=== PATIENT | female | born 1965 | race Caucasian/White ===

== ENCOUNTER 2019-12-18 09:03 | Outpatient (CLI) | payer OTHER, SELFPAY ==
--- NOTE | ~2019-12-18 | MM_ITS ---
EXAMINATION: MM screening liv BI w pina HISTORY: Screening mammogram TECHNIQUE: Craniocaudal and mediolateral oblique 3-D tomosynthesis images were obtained and synthetic 2-D images were generated. CAD analysis was submitted and interpreted. COMPARISON: 12/03/2018, 12/02/2017, 12/20/2016, 12/10/2016 BREAST PARENCHYMAL COMPOSITION: There are scattered areas of fibroglandular density. FINDINGS: Scattered benign-appearing calcifications are present. There is no evidence of suspicious m ass, calcification, or architectural distortion to suggest malignancy in either breast. There has bee n no suspicious interval change. IMPRESSION: 1. No mammographic evidence of malignancy. 2. Recommend routine screening mammography in one year. BI-RADS Category 2: Benign finding(s). Reviewed, dictated and finalized at location A.
== END 2019-12-18 09:04 | disposition home or self-care (01) ==
PROVIDERS: PCP Internal Medicine; Visit Provider Nurse Practitioner Obstetrics & Gynecology
DX: Z12.31 Encounter for screening mammogram for malignant neoplasm of breast (principal)
CPT/HCPCS: 77063; 77067

== ENCOUNTER → 2019-12-30 09:22 | Outpatient (CLI) | payer OTHER, SELFPAY ==
--- NOTE | ~2019-12-30 | DEXA_ITS ---
Bone Density Report Name: Bhumi Thompson Age: 54 Sex: Female Ethnicity: White Date of : 1965 Indication: postmenopausal; screening for osteoporosis; hysterectomy; Referring Provider: Nathan, Nafisa Remy Study: Bone densitometry was performed. Exam Date: December 30, 2019 Accession number: [id number] Bone Density: Region BMD T-score Z-score Classification AP Spine (L1-L4) 0.947 -0.9 0.3 Normal Femoral Neck (Left) 0.800 -0.4 0.7 Normal Total Hip (Left) 0.952 0.1 0.8 Normal Femoral Neck (Right) 0.813 -0.3 0.8 Normal Total Hip (Right) 0.949 0.1 0.8 Normal Total Hip Mean 0.951 0.1 0.8 Normal World Health Organization criteria for BMD impression classify patients as: Normal (T-score at or above -1.0), Osteopenia (T-score between -1.0 and -2.5), or Osteoporosis (T-score at or below -2.5). 10-year Fracture Risk: FRAX not reported because: All T-scores for Spine Total, Hip Total, Femoral Neck at or above -1.0 Clinical Information Provided by Patient: Has the following medical conditions: Hysterectomy Patient maximum height was 63.6 Menopause Age: 51 No regular weight bearing exercise Drinks caffeinated beverages Onset of menses at age 13 Number of children 2 Impression: The patient has normal bone mass. Discussion: BONE DENSITY IS ABOVE THE MINIMUM DESIRABLE LEVEL AT ALL SKELETAL SITES TESTED. This patient?s bone mineral density is above the minimum desirable level (T-score -1.0 or better) at all sites measured. The patient should follow a healthful lifestyle (good nutrition with adequate calcium and vitamin D, and appropriate weight-bearing exercise). Follow-Up: Consider repeating this study in 5 years or sooner if there is some new clinical indication. Reported by: JACQUELINE on 12/30/2019 10:08:00 AM. Reviewed, dictated and finalized at location AGerry MIRELES
== END ==
PROVIDERS: Visit Provider Nurse Practitioner Obstetrics & Gynecology
DX: Z13.820 Encounter for screening for osteoporosis (principal)
CPT/HCPCS: 77080

== ENCOUNTER 2020-12-02 08:11 | Outpatient (CLI) | payer OTHER, SELFPAY ==
--- NOTE | ~2020-12-02 | MM_ITS ---
EXAMINATION: MM screening liv BI w pina HISTORY: Screening TECHNIQUE: Craniocaudal and mediolateral oblique 3-D tomosynthesis images were obtained and synthetic 2-D images were generated. CAD analysis was submitted and interpreted. COMPARISON: Comparison to multiple prior studies sequentially, with oldest reviewed study dated 12/2015. BREAST PARENCHYMAL COMPOSITION: There are scattered areas of fibroglandular density. FINDINGS: The left breast is stable without evidence for malignancy. There is developing asymmetry in the lower inner quadrant of the right breast. IMPRESSION: 1. Developing right breast asymmetry. 2. Additional mammographic views and possible breast ultrasound are recommended. BI-RADS Category 0: Incomplete: Needs additional imaging evaluation. Reviewed, dictated and finalized at location A. IMPRESSION: 1. Developing right breast asymmetry. 2. Additional mammographic views and possible breast ultrasound are recommended . BI-RADS Category 0: Incomplete: Needs additional imaging evaluation.
== END 2020-12-02 08:12 | disposition home or self-care (01) ==
LOC: ANHIMG 08:14
PROVIDERS: PCP Internal Medicine; Visit Provider Nurse Practitioner Obstetrics & Gynecology
DX: Z12.31 Encounter for screening mammogram for malignant neoplasm of breast (principal)
CPT/HCPCS: 77063; 77067

== ENCOUNTER 2020-12-28 12:51 | Outpatient (CLI) | payer OTHER, SELFPAY ==
--- NOTE | ~2020-12-28 | MMUS_ITS ---
EXAMINATION: MM diagnostic mammo unilat RT, US breast RT limited HISTORY: Follow-up right breast asymmetry TECHNIQUE: Additional 3-D tomosynthesis images of the right breast were performed and synthetic 2-D i mages were generated. CAD analysis was submitted and interpreted. High resolution Limited right breas t ultrasound was performed. COMPARISON: 12/02/2020 BREAST PARENCHYMAL COMPOSITION: Breast composed of scattered areas of fibroglandular density. FINDINGS: MAMMOGRAPHIC FINDINGS: There is persistent focal asymmetry with ill-defined margins in the lower inner quadrant of the right breast, middle third. No suspicious calcifications or architectural distortion. ULTRASOUND: Right breast ultrasound: At 5:00, 5 cm from the nipple, there is an irregular shaped hypoechoic mass with posterior shadowing measuring 1.4 x 1.0 x 0.8 cm. No internal vascularity. At 9:00, 3 cm from the nipple, there is an irregular shaped hypoechoic mass measuring 9 x 7 x 4 mm wi th no significant posterior features or internal vascularity. IMPRESSION: 1. Abnormal irregular shaped hypoechoic masses of the right breast at 5:00 and 9:00. 2. Ultrasound-guided right breast biopsies recommended. BI-RADS category 4, suspicious findings. Reviewed, dictated and finalized at location A. IMPRESSION: 1. Abnormal irregular shaped hypoechoic masses of the right breast at 5:00 and 9:00. 2. Ultrasound-guided right breast biopsies recommended. BI-RADS category 4, suspicious findings.
== END 2020-12-28 12:52 | disposition home or self-care (01) ==
LOC: ANHIMG 12:52
PROVIDERS: PCP Internal Medicine; Visit Provider Nurse Practitioner Obstetrics & Gynecology
DX: N63.14 Unspecified lump in the right breast, lower inner quadrant (principal); N63.15 Unspecified lump in the right breast, overlapping quadrants
CPT/HCPCS: 76642; 77065

== ENCOUNTER 2023-02-04 06:59 | Outpatient (CLI) | payer OTHER, SELFPAY ==
--- NOTE | ~2023-02-04 | MM_ITS ---
EXAMINATION: MM screening liv BI w pina HISTORY: Screening mammogram TECHNIQUE: Craniocaudal and mediolateral oblique 3-D tomosynthesis images were obtained and synthetic 2-D images were generated. CAD analysis was submitted and interpreted. COMPARISON: 12/28/2020, 12/02/2020, 12/18/2019 BREAST PARENCHYMAL COMPOSITION: There are scattered areas of fibroglandular density. FINDINGS: Scattered benign-appearing calcifications are present. No suspicious mass, calcification, o r architectural distortion are identified in either breast to suggest malignancy. There has been no s uspicious interval change. IMPRESSION: 1. No mammographic evidence of malignancy. 2. Recommend routine screening mammography in one year. BI-RADS Category 2: Benign finding(s). Reviewed, dictated and finalized at location A.
== END 2023-02-04 07:00 | disposition home or self-care (01) ==
LOC: CHSIMG 07:01
PROVIDERS: PCP Internal Medicine; Visit Provider Internal Medicine
DX: Z12.31 Encounter for screening mammogram for malignant neoplasm of breast (principal)
CPT/HCPCS: 77063; 77067

== ENCOUNTER 2024-02-10 07:54 | Outpatient (CLI) | payer BC, SELFPAY ==
--- NOTE | ~2024-02-10 | MM_ITS ---
EXAMINATION: MM screening liv BI w pina HISTORY: Screening TECHNIQUE: Craniocaudal and mediolateral oblique 3-D tomosynthesis images were obtained and synthetic 2-D images were generated. CAD analysis was submitted and interpreted. COMPARISON: Comparison to multiple prior studies sequentially, with oldest reviewed study dated 09/2017. BREAST PARENCHYMAL COMPOSITION: Not dense: There are scattered areas of fibroglandular density. FINDINGS: There is no evidence of suspicious mass, calcification, or architectural distortion to sugg est malignancy in either breast. There has been no suspicious interval change. IMPRESSION: 1. No mammographic evidence of malignancy. 2. Recommend routine screening mammography in one year. BI-RADS Category 1: Negative Reviewed, dictated and finalized at location B.
== END 2024-02-10 07:55 | disposition home or self-care (01) ==
LOC: CHSIMG 07:58
PROVIDERS: PCP Internal Medicine; Visit Provider Internal Medicine
DX: Z12.31 Encounter for screening mammogram for malignant neoplasm of breast (principal)
CPT/HCPCS: 77063; 77067

== ENCOUNTER 2024-12-01 14:46 | Outpatient (CLI) | payer BC, SELFPAY ==
--- NOTE | ~2024-12-01 | CT_ITS ---
EXAMINATION: CT sinus wo con DATE: 12/01/2024 15:09 INDICATION: Chronic sinusitis. TECHNIQUE: Computed tomography (CT) of the paranasal sinuses was performed without intravenous contra st. The dose-length product was 296.82 mGy-cm. Automated exposure control and iterative reconstructio n technique were employed. COMPARISON: None FINDINGS: There is no significant mucosal thickening or air-fluid level. No mucoperiosteal reaction. Mastoids are pneumatized. Leftward nasal septal deviation. Ostiomeatal units are patent. Mastoids are pneumatized. IMPRESSION: 1. No significant sinus disease. Reviewed, dictated and finalized at location A.
--- OUTSIDE RECORDS SUMMARY | 2024-12-01 14:49 | XMS_ITS | Clinical Summary ---
Author Organization [facility] Address [address] [place] [address] Care Team Providers Care Cargo Worker Name Role Phone Favian Tyler DO Primary Care Provider [phone] Source Comments [facility] [employer],non-owned Affiliates and Associated Physician Practices is amultiple site organization consisting of ambulatory clinics and hospital sitesin [place], [place], [place] and [place]. This disclosure is being madepursuant to the Care Everywhere program and may not contain all information available regarding this patient. Last updated 18.[facility] [employer] Social History Tobacco Use Types Packs/Day Years Used Date Smoking Tobacco: Never Assessed Comments Unknown Sex and Gender Information Value Date Recorded Sex Assigned at Not on file Legal Sex Female 1:14 PM CDT Gender Identity Not on file Sexual Orientation Not on file Plan of Treatment Health Maintenance Due Date Last Done Comments COLOGUARD (AGES 45-75) - COL ON CA SCREENING 1965 COLON MONITORING 1965 COLONOSCOPY - COLON CA SCREENING 1963 CT COLONOGRAPHY - COLON CA SCREENING 1965 Colorectal Cancer Screening 1965 FIT - COLON CA SCREENING 1965 FLEX SIG - COLON CA SCREENING 1965 LIPID TESTING 1965 MAMMOGRAM 1965 HIV SCREENING 1978 HEPATITIS C SCREENING 06/03/1981 DTAP/TDAP/TD VACCINES (1 - Tdap) 1982 PNEUMOCOCCAL VACCINE 50+ (1 of 1 - PCV) 2013 ZOSTER VACCINE (1 of 2) 2013 COVID-19 VACCINE (1 - 2023-2 5 season) 2024 DEPRESSION SCREENING 07/01/2024 INFLUENZA VACCINE (Season Ended) 2025 Respiratory Syncytial Virus (RSV) Vaccine Pt: or over 60 yrs (1 - 1-dose 75+ series) 2038 HEPATITIS B VACCINE Aged Out No longe r eligible based on patient's age to complete this topic HIB VACCINE Aged Out No longer eligi ble based on patient's age to complete this topic HPV VACCINE Aged Out No longer eligi ble based on patient's age to complete this topic MENINGOCOCCAL (Group B) VACC INE SHARED DECISION-MAKING Aged Out No longer eligibl e based on patient's age to complete this topic MENINGOCOCCAL GROUPS A/C/Y/W VACCINE Aged Out No longer eligible b ased on patient's age to complete this topic Care Teams Cargo Worker Relationship Specialty Start Date End Date Favian Tyler DO [address] [place] [address] PCP - General 01/28/19
--- OUTSIDE RECORDS SUMMARY | 2024-12-01 14:49 | XMS_ITS | Encounter Summary ---
Author Organization [facility] Address [address] [place] [address] Care Team Providers Care Outside Sales Account Representative Name Role Phone Favian Tyler DO Primary Care Provider [phone] Encounter Details Date Type Department Care Team (Late st Contact Info) Description 09/10/2019 Lab Requisition [facility] [address] [place] [id number] Bull Zamudio MD [address] [place] [address] Social History Tobacco Use Types Packs/Day Years Used Date Smoking Tobacco: Never Assessed Comments Unknown Sex and Gender Information Value Date Recorded Sex Assigned at Not on file Legal Sex Female 1:14 PM CDT Gender Identity Not on file Sexual Orientation Not on file documented as of this encounter Plan of Treatment Not on file documented as of this encounter Procedures Procedure Name Priority Date/Time Associated Diagnosis Comments DERMATOPATHOLOGY Routine 09/09/2019 12:0 0 AM CDT documented in this encounter Results * DERMATOPATHOLOGY (09/09/2019 12:00 AM CDT) Case Report Dermatopathology Report Case: [id number] Authorizing Provider: Bull Zamudio MD Collected: 09/09/2019 12:00 AM Ordering Location: [facility] Received: 09/10/2019 12:50 PM Pathologist: Marta Nguyen MD Specimen: Skin, right lateral lower leg 0 3:40 PM CDT DERMATOPATHOLOGY LABORATORY Final Diagnosis Specimen A. SKIN, right lateral lower leg: BASAL CELL CARCINOMA, SUPERFICIAL MULTIFOCAL (C44.712) 0 3:40 PM CDT DERMATOPATHOLOGY LABORATORY at 1540 CDT Clinical History R/O Drake's, BCC, dys nevus. 0 3:40 PM CDT DERMATOPATHOLOGY LABORATORY Gross Description Specimen A: Received is one formalin filled container labeled with the patient's name and designated right lateral lower leg. The specimen consists of a shave biopsy measuring [id number]. Jar 0. 0 3:40 PM CDT DERMATOPATHOLOGY LABORATORY Microscopic Description Specimen A. SKIN, right lateral lower leg: Attached to the undersurface of the epidermis, there are small aggregates of basaloid cells with a high nuclear to cytoplasmic ratio and peripheral palisading. 0 3:40 PM CDT DERMATOPATHOLOGY LABORATORY Disclaimer An external and internal positive and negative controls are appropriate for the histochemical, immunohistochemical and immunofluorescence stain(s) in this case (if any), except where stated explicitly. The performance characteristics of the stain(s) cited in this report were developed and its performance characteristic determined by the Dermatopathology Laboratory at [facility], directed by Dr. Alexandra Lieberman. These tests need not be, and therefore are not, approved by the [place] Food and Drug Administration. The tests are used for clinical purposes. Billing Codes Specimen Charges Stain Charges 52092 1 0 3:40 PM CDT DERMATOPATHOLOGY LABORATORY Embedded Images 0 3:40 PM CDT DERMATOPATHOLOGY LABORATORY Pathology/Cytolog y TISSUE SPECIMEN FROM SKIN / Unknown 09/09/2019 09/10/2019 12:50 PM CDT us Bull Zamudio MD LAB - PATHOLOGY/CYTOLOGY ORD ERABLES Final Result DERMATOPATHOLOGY LABORATORY [facility] - Department of Dermatology [facility] [facility], 5th [place] [address], [facility] [phone] documented in this encounter Visit Diagnoses Not on filedocumented in this encounter Care Teams Outside Sales Account Representative Relationship Specialty Start Date End Date Favian Tyler DO [address] [facility] [address] [place] [address] PCP - General 7/31/19 documented as of this encounter
--- OUTSIDE RECORDS SUMMARY | 2024-12-01 14:49 | XMS_ITS | Encounter Summary ---
Author Organization [facility] Address [address] [facility] [address] [place] [address] Care Team Providers Care Learning Operations Specialist Name Role Phone Favian Tyler DO Primary Care Provider [phone] Encounter Details Date Type Department Care Team (Late st Contact Info) Description 05/19/2020 Lab Requisition [facility] [address] [place] [id number] Bull Zamudio MD [address] [place] [address] Social History Tobacco Use Types [...] Priority Date/Time Associated Diagnosis Comments DERMATOPATHOLOGY Routine 05/18/2020 12:0 0 AM STILL OPERATOR BATCH OR CONTINUOUS documented in this encounter Results * DERMATOPATHOLOGY (05/18/2020 12:00 AM STILL OPERATOR BATCH OR CONTINUOUS) Case Report Dermatopathology Report Case: [id number] Authorizing Provider: Bull Zamudio MD Collected: 05/18/2020 12:00 AM Ordering Location: [facility] Received: 05/19/2020 11:29 AM Pathologist: Marta Nguyen MD Specimen: Skin, left upper breast 0 6:24 PM STILL OPERATOR BATCH OR CONTINUOUS DERMATOPATHOLOGY LABORATORY Final Diagnosis Specimen A. SKIN, left upper breast: LICHEN PLANUS-LIKE KERATOSIS (BENIGN LICHENOID KERATOSIS) (L82.1) 0 6:24 PM STILL OPERATOR BATCH OR CONTINUOUS DERMATOPATHOLOGY LABORATORY at 1824 STILL OPERATOR BATCH OR CONTINUOUS Clinical History R/O ISK, BCC, Drkae's, SCC. 0 6:24 PM STILL OPERATOR BATCH OR CONTINUOUS DERMATOPATHOLOGY LABORATORY Gross Description Specimen A: Received is one formalin filled container labeled with the patient's name and designated left upper breast. The specimen consists of a shave biopsy measuring [id number]. Jar 0. 0 6:24 PM STILL OPERATOR BATCH OR CONTINUOUS DERMATOPATHOLOGY LABORATORY Microscopic Description Specimen A. SKIN, left upper breast: The epidermis is mildly acanthotic. There is a lichenoid infiltrate with vacuolar changes of basilar keratinocytes and scattered necrotic keratinocytes. 0 6:24 PM STILL OPERATOR BATCH OR CONTINUOUS DERMATOPATHOLOGY LABORATORY Disclaimer An external and internal positive and negative controls are appropriate for the histochemical, immunohistochemical and immunofluorescence stain(s) in this case (if any), except where stated explicitly. The performance characteristics of the stain(s) cited in this report were developed and its performance characteristic determined by the Dermatopathology Laboratory at [facility], directed by Dr. Alexandra Lieberman. These tests need not be, and therefore are not, approved by the [place] Food and Drug Administration. The tests are used for clinical purposes. Billing Codes Specimen Charges Stain Charges 79856 1 0 6:24 PM STILL OPERATOR BATCH OR CONTINUOUS DERMATOPATHOLOGY LABORATORY Embedded Images 0 6:24 PM STILL OPERATOR BATCH OR CONTINUOUS DERMATOPATHOLOGY LABORATORY Pathology/Cytolog y TISSUE SPECIMEN FROM SKIN / Unknown 05/18/2020 05/19/2020 11:29 AM STILL OPERATOR BATCH OR CONTINUOUS Bull Zamudio MD LAB - PATHOLOGY/CYTOLOGY ORD ERABLES Final Result DERMATOPATHOLOGY LABORATORY [facility] - Department of Dermatology [facility] [address] [place] [address], [address] [place] [address], [facility] [phone] documented in this encounter Visit Diagnoses Not on filedocumented in this encounter Care Teams Learning Operations Specialist Relationship Specialty Start Date End Date Favian Tyler DO [address] [place] [address] PCP - General 01/28/19 documented as of this encounter
--- OUTSIDE RECORDS SUMMARY | 2024-12-01 14:49 | XMS_ITS | Clinical Summary ---
Author Organization [facility] Address [facility] [place] [address] Care Team Providers Care Knockdown Worker Name Role Phone Favian Tyler MD Primary Care Provider [phone] Allergies No known active allergies Medications FLUoxetine (PROzac) 20 mg tabletIndicatio ns:Anxiety with Depression Take 20 mg by mouth every morning 1 Active omeprazole (PriLOSEC) 20 mg capsuleIndicati ons:Gerd Take 20 mg by mouth every morning Active ascorbic acid (vitamin C) 1,000 mg tabletIndicatio ns:Vitamin C Deficiency Take 1,000 mg by mouth every morning Active cholecalciferol (VITAMIN D-3) 2000 unit capsule Take 2,000 Units by mouth every morning Active zinc 50 mg tabletIndicatio ns:health Take 50 mg by mouth every morning Active turmeric root extract 500 mg capsuleIndicati ons:health Take 500 mg by mouth every morning Active ELDERBERRY FRUIT AND FLOWER ORALIndications :health Take 1 Caplet by mouth every morning Active ibuprofen (ibuprofen) 200 mg tab/capIndicati ons:Pain Take 400 mg by mouth every 6 (six) hours as needed for pain Active fluticasone propionate (FLONASE) 50 mcg/actuation nasal sprayIndication s:Allergic Rhinitis Administer 1 spray into each nostril every morning Active UNABLE TO FIND Administer 1 each into both eyes every morning OTC eye drop for Macular degeneration prevention Active docusate sodium (COLACE) 100 mg capsuleIndicati ons:constipatio n Take 1 capsule (100 mg total) by mouth 2 (two) times a day with a glass of water 10 capsule 1 Active oxyCODONE-aceta minophen (PERCOCET) 5-325 mg per tabletIndicatio ns:Pain Take 1 tablet by mouth every 4 (four) hours as needed for pain 10 tablet 1 Active Active Problems Problem Noted Date Diagnosed Date Abnormal findings on diagnostic imaging of yunior t 01/23/2021 Surgical History Surgery Date Site/Laterality Comments SINUS SURGERY 07/01/1997 - 06/30/1998 ELBOW SURGERY 07/01/2003 - 06/30/2004 Right FOOT SURGERY 07/01/2019 - 06/30/2020 LEG / ANKLE SOFT TISSUE BIOPSY 07/01/2019 - 06/30/2020 R ight HYSTERECTOMY 07/01/2015 - 06/30/2016 BREAST BIOPSY 01/24/2021 Right Medical History Medical History Date Comments Motion sickness GERD (gastroesophageal reflux disease) Skin cancer Breast cancer (HCC) Right Family History Medical History Relation Name Comments Coronary artery disease Father Skin cancer Father Lung cancer Maternal Grandfather Relation Name Status Comments Father Maternal Grandfather Social History Tobacco Use Types Packs/Day Years Used Date Smoking Tobacco: Never Smokeless Tobacco: Never AUDIT-C Answer Date Recorded Q1: How often do you have a drink containing alc ohol? 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 Gender Identity Not on file Sexual Orientation Not on file Obstetrics History Last Filed Vital Signs Vital Sign Reading Time Taken Comments Blood Pressure 133/82 03/13/2021 9:20 AM CDT Pulse 55 03/13/2021 9:20 AM CDT Temperature 36.2 C (97.2 F) 03/13/2021 9:00 AM CDT Respiratory Rate 13 03/13/2021 9:20 AM CDT Oxygen Saturation 95% 03/13/2021 9:20 AM CDT Inhaled Oxygen Concentration - - Weight 69.4 kg (153 lb) 12/11/2021 9:00 AM CDT Height 160 cm (5' 3) 12/11/2021 9:00 AM CDT Body Mass Index 27.1 12/11/2021 9:00 AM CDT Plan of Treatment Health Maintenance Due Date Last Done Comments Colon Cancer Screening-Colonoscopy 1965 Depression Screening 1965 Hepatitis C Screening 1965 DTaP/Tdap/Td Vaccine (1 - Tdap) 1974 Hepatitis B Screening 1981 Regular Well Visit/Exam 18-64 1981 Zoster Vaccine (1 of 2) 2013 Breast Cancer Screening-Mammogram 12/11/2022 022 Influenza Vaccine (Season Ended) 2025 Pneumococcal vaccine <65 Aged Out No longer eligible based on patient's age to complete this topic Medical Devices Implanted Type Area Him Tech Device Identifier Shelf Expiration Date Model / Serial / Lot bTendo [id number] Magseed 18ga 7cm Marker Breast Biopsy - [id number] Implanted:Qty: 1 on 03/07/2021 at [facility] Right: Breast bTendo [id number] / / Procedures Procedure Name Priority Date/Time Associated Diagnosis Comments SCREENING MAMMOGRAM BILATERAL W PATRICK Schedule Routine, Read Routine (OP Routine) 12/11/2021 9:53 AM CDT Abnormal findings on diagnostic imaging of breast from Last 3 Months or Most Recently Relevant to Health Maintenance Results * Screening Mammogram Bilateral W Patrick (12/11/2021 9:53 AM CDT) Anatomical Region Laterality Modality Breast Bilateral Mammography Narrative 12/13/2021 1:55 PM CDT Mammogram Technique: Bilateral Digital Breast Tomosynthesis, Bilateral C-view 2D Screening mammogram. Views obtained: bilateral craniocaudal and bilateral mediolateral oblique. Computer Aided Detection was performed. Mammogram Findings: No prior imaging studies are available for comparison. There are scattered areas of fibroglandular density. There is no suspicious abnormality in either breast. Impression: There is no mammographic evidence of malignancy. Annual screening mammography is recommended. OVERALL FINAL ASSESSMENT: BI-RADS CATEGORY 1: Negative. Procedure Note Modesta Gandhi MD - 12/13/2021 Mammogram Technique: Bilateral Digital Breast Tomosynthesis, Bilateral C-view 2D Screening mammogram. Views obtained: bilateral craniocaudal and bilateral mediolateral oblique. Computer Aided Detection was performed. Mammogram Findings: No prior imaging studies are available for comparison. There are scattered areas of fibroglandular density. There is no suspicious abnormality in either breast. Impression: There is no mammographic evidence of malignancy. Annual screening mammography is recommended. OVERALL FINAL ASSESSMENT: BI-RADS CATEGORY 1: Negative. Provider Transcribed Order IMG MAMMO PROCEDURES Final Result from Last 3 Months or Most Recently Relevant to Health Maintenance Insurance [employer] Care Teams Knockdown Worker Relationship Specialty Start Date End Date Favian Tyler MD [address] [facility] [address] [place] [id number] PCP - General Internal Medicine 12/30/20
--- OUTSIDE RECORDS SUMMARY | 2024-12-01 14:49 | XMS_ITS | Clinical Summary ---
Author Organization [facility] Address [address], [address] [address] Phone Care Team Providers Care Superintendent Sales Name Role Phone Favian Tyler Aurelio DELACRUZ Primary Care Provider [phone] [phone] Allergies No known active allergies Medications lansoprazole (PREVACID) 15 MG CAPSULE DELAYED RELEASE Take 15 mg by mouth daily. Active Multiple Vitamin (MULTI-VITAMIN PO) Take 1 Tab by mouth daily. Active Multiple Vitamins-Mineral s (RA MATURE WOM[employer] DIETARY SUPP) Tablet Take by mouth. Active FLUoxetine HCl 20 MG Tablet Take 20 mg by mouth daily. Active Family History Medical History Relation Name Comments Cancer Father skin Coronary Artery Disease Father Hypertension Mother Stroke Mother Relation Name Status Comments Father Alive Mother Alive Social History Tobacco Use Types Packs/Day Years Used Date Smoking Tobacco: Never Smokeless Tobacco: Never Alcohol Use Standard Drinks/Week Comments Never 0 (1 standard drink = 0.6 oz pur e alcohol) AUDIT-C Answer Date Recorded Frequency of Alcohol Consumption Never 12/25/2018 Average Number of Drinks Not on file 019 Frequency of Binge Drinking Not on file 11/30 Sexually Active Control Partners Comments Never Comments Unknown Sex and Gender Information Value Date Recorded Sex Assigned at Not on file Legal Sex Female 9:16 PM CDT Gender Identity Not on file Sexual Orientation Not on file Last Filed Vital Signs Vital Sign Reading Time Taken Comments Blood Pressure 116/71 01/13/2019 8:04 AM CDT Pulse 62 01/13/2019 6:25 AM CDT Temperature 36 C (96.8 F) 01/13/2019 8:04 AM CDT Respiratory Rate 17 01/13/2019 8:04 AM CDT Oxygen Saturation 99% 01/13/2019 8:04 AM CDT Inhaled Oxygen Concentration - - Weight 68 kg (150 lb) 12/25/2018 11:00 AM CDT Height 160 cm (5' 3) 12/25/2018 11:00 AM CDT Body Mass Index 26.57 12/25/2018 11:00 AM CDT Plan of Treatment Health Maintenance Due Date Last Done Comments Hepatitis C Virus (HCV) Screening 1965 TdaP Immunization 1965 Cologuard 2013 Immunochemical Fecal Occult Blood 2013 Mammogram 2013 Pneumococcal Immunization (5 0+ years) (1 of 1 - PCV) 2013 Zoster Immunization (1 of 2) 2013 Colonoscopy 01/14/2024 01/13/2019 Colorectal Cancer Screening 01/14/2024 Influenza Immunization (#1) 2024 SARS-COV-2 Immunization (1 - 2023- season) 2024 Respiratory Syncytial Virus (RSV) Immunization (Adult) (1 - 1-dose 75+ series) 2038 01/13/2019 Hepatitis B Immunization Aged Out No longer eligible based on patient's age to complete this topic Meningococcal Immunization (ACWY) Aged Out No longer eligible based on patient's age to complete this topic Pneumococcal Immunization Combined Aged Out No longer eligible based on patient's age to complete this topic Rotavirus Immunization Aged Out No lo nger eligible based on patient's age to complete this topic Care Teams Superintendent Sales Relationship Specialty Start Date End Date Favian Tyler DO [address] [place] [address] PCP - General Internal Medicine 12/09/18
--- OUTSIDE RECORDS SUMMARY | 2024-12-01 14:49 | XMS_ITS | Continuity of Care Document ---
Author Organization [facility], [facility] Address [address] [place] [address] Care Team Providers Care Computer Equipment Installer Name Role Phone LACY BETANCUR Orthopedist TREV HURD Primary Care Provider [phone] TREV HURD Referring Provider ADRIANNA ROWAN Physician Crew Lead Assessment No assessment recorded. Plan of Treatment Reminders Order Date Submit Date Provider Last Modified By Organization Details Last Modified Time Details Appointments None recorde d. Lab None recorde d. Referral None recorde d. Procedures None recorde d. Surgeries None recorde d. Imaging XR, shoulde r, 2 or more view 2024 025 [facility], [address] [place], [address], 5 12:03:25 Medication Orders lidocai ne HCl 10 mg/mL (1 %) injecti on solutio n 2024 025 [facility], [place], [address] [place], [address], 5 16:18:57 triamci nolone acetoni de 40 mg/mL suspens ion for injecti on 2024 025 [facility], [address] [place], [address], 5 16:18:57 lidocai ne HCl 10 mg/mL (1 %) injecti on solutio n 2024 025 [facility], [address] [place], [address], 5 16:18:57 triamci nolone acetoni de 40 mg/mL suspens ion for injecti on 2024 025 [facility], [address] [place], [address], 5 16:18:57 Patient TargetsNo targets recorded. Patient Instructions Encounter Date Encounter Id Patient Instructions Last Modified By Organization Details Last Modified Time 11/30/2024 [id number] Impression: 59-year-old female with bilateral shoulder pain likely rotator cuff tendinitis and impingement syndrome. No evidence of rotator cuff tear on exam. Plan: X-ray and physical exam findings were discussed. Treatment options were discussed. Subacromial injection was given into both shoulders. She continue home exercise program for her shoulders. She has been to follow-up if she is not improving. This document was created using the Connectem voice recognition system. Although proofread, there may still be inadvertent voice recognition errors. [employer] Not available 11/30/2024 21:09:05 Reason for Referral None Reported. Problems Name Problem SNOMED Code Status Onset Date Resolution Date Notes Provider Name and Address Organization Details Recorded Time Pain of right shoulder joint 1749957510689 9100 Active 2019 Jaci Vincent null, [place] - [facility] 5 11:25:58 Pain of shoulder region 78420742 Active 2019 PEDRO CHRISTIANSON null, [place] - [facility] 0 10:58:22 Rupture of rotator cuff of right shoulder 7273859203704 9103 Active 2019 Gilson Betancur null, [place] - [facility] 0 11:07:12 Impingement syndrome of right shoulder region 3781524016600 02 Active 2020 Zachary Guerrero MD [address] [place], [address], [place] - [facility] 5 21:08:25 Trigger finger of right hand 2865166708200 9101 Active 2021 Jared London null, [place] - [facility] 2 11:29:43 Chondromala mathew of right patella 8362491406620 9108 Active 2022 Maria Ines Elizabeth III, MD [address] [place], [address], [place] [facility] 3 11:12:06 Paresthesia of upper limb 11777119 Active 2022 YURI LAM DO [address] [place], [address], [place] [facility] 3 08:19:58 Pain of right hip joint 9555615939976 02 Active 2023 Jaci Carlton null, [place] - [facility] 4 13:18:33 Low back pain 554486739 Active 2023 Jaci Carlton null, [place] - [facility] 4 13:44:01 Neck pain 28739215 Active 2024 Jacob Macias null, [place] - [facility] 5 12:06:18 Pain of left shoulder joint 7447649624361 9109 Active 2024 Aissatou Putnam null, [place] - [facility] 5 16:15:23 Impingement syndrome of left shoulder region 6146663756078 04 Active 2024 Zachary Guerrero MD [address] [place], [address], [place] [facility] 5 21:08:31 Stiffness of left shoulder 1662600338071 06 Active 2024 Cristian Vitale, OT [address] [place], [address], [place] - [facility] 5 17:56:44 Weakness of left upper limb Active 2024 Cristian Vitale, OT [address] [facility] [place], [address], [place] - [facility] 5 17:56:51 Pain of left shoulder region Active 2024 Aissatou Putnam jd, [place] - [facility] 12:11:33 Problem Notes None recorded. Procedures Surgical History Date Name Laterality Status Provider Name and Address Organization Details Recorded Time 12/01/19 25 Injection Shoulder Sub-Acromial completed Zachary Guerrero MD [address] [facility] [place], [address], [place] - [facility] 11/30/2024 21:08:14 09/04/19 25 72682 OT eval low complexity completed Cristian Vitale OT [address] [place], [address], [place] - [facility] 09/06/2024 18:15:14 08/28/19 25 Injection Shoulder Sub-Acromial completed Zachary Guerrero MD [address] [facility] [place], [address], [place] - [facility] 08/28/2024 12:31:35 12/30/19 24 Date of Last Mammogram completed Not Available [facility] 05/19/2024 12:56:29 12/30/19 24 Most Recent Bone Density completed Not Available [facility] 05/19/2024 12:56:29 12/30/19 24 Mammogram completed Not Available [facility] 11/30/2024 10:40:02 03/08/20 23 36870: Asp/Inj - [id number]-[id number]-mom e completed PEDRO CHRISTIANSON [place] - [facility] 03/08/2023 11:21:41 08/09/19 22 TRIGGER FINGER INJECTION completed Jared Venturaargo [place] - [facility] 08/09/2021 11:31:41 08/09/19 22 Shoulder SA Injection completed Jared Venturaargo [place] - [facility] 08/09/2021 11:31:06 11/12/19 21 30030: Asp/Inj - khnkttzh-knd-xyx e completed Gaby Christy [place] - [facility] 11/11/2020 12:09:39 02/09/20 20 SHOULDER ARTHROSCOPY (SURG) completed Not Available [facility] 02/18/2020 17:28:05 02/03/20 20 B-Shoulder Brace completed Adrianna GRANDE [place] - [facility] 02/03/2020 10:16:38 07/01/19 20 Rotator Cuff Surgery completed Not Available [facility] 02/12/2023 10:04:38 07/01/19 19 Most Recent Mammogram completed PEDRO CHAVEZLEY [place] - [facility] 01/20/2020 10:40:39 07/01/19 17 Colonoscopy completed PEDRO CHAVEZLEY [place] - [facility] 01/20/2020 10:40:16 Other completed PEDRO CHRISTIANSON [facility] 01/20/2020 10:39:39 excision of basal cell carcinoma completed PEDRO CHAVEZLEY [place] - [facility] 01/20/2020 10:39:48 excision of squamous cell carcinoma completed PEDRO CHAVEZLEY [facility] 01/20/2020 10:39:56 Hysterectomy completed PEDRO CHRISTIANSON [facility] 01/20/2020 10:40:01 Imaging Results None recorded. Procedure Notes None recorded. Medical Equipment None Reported. Allergies Allergen ID Allergen Name Allergen Category Reaction Reaction Severity Criticality Documentation Date Start Date Code Code System Note Provider Name and Address Organization Details Recorded Time 582242 amoxicill in medicatio n Not available Not available Not available 01/20/2020 723 RxNorm PEDRO miles [facility] 0 10:36:32 749735 Product containin g penicilli n (product) medicatio n Not available Not available Not available 01/20/2020 79793 8001 SNOMED Not Available [facility] 5 10:40:01 507286 Substance with sulfonami de structure and antibacte rial mechanism of action (substanc e) medicatio n Not available Not available Not available 01/20/2020 66860 8003 SNOMED PEDRO CHAVEZZEFERINO miles [facility] 0 10:36:45 241047 Iodinated contrast media (substanc e) medicatio n Not available Not available Not available 01/20/2020 12512 2004 SNOMED PEDRO CHAVEZLEY jd [place] - [facility] 0 10:36:50 Medications Name Sig Start Date Stop Date Status Note LastModified by Organization Details LastModified Time lidocaine HCl 10 mg/mL (1 %) injection solution Take 4 mL by injection route. 2024 active Not Available Not Available Not Avai lable trazodone 50 mg tablet 02/09 completed Not Available Not Available Not Available bupivacaine HCl 0.5 % (5 mg/mL) injection solution Take 4 mL by injection route. 05/19 completed Not Available Not Available Not Available fluorouraci l 5 % topical cream 05/19 completed Not Available Not Available Not Available metronidazo le 500 mg tablet TAKE 1 TABLET BY MOUTH EVERY 8 HOURS FOR 10 DAYS 02/09 completed Not Available Not Available Not Available ciprofloxac in 500 mg tablet TAKE 1 TABLET BY MOUTH EVERY 12 HOURS FOR TEN DAYS 02/09 completed Not Available Not Available Not Available Carbocaine 1 % (10 mg/mL) injection solution Take 3 mL by injection route. 02/09 completed Not Available Not Available Not Available propranolol 10 mg tablet TAKE ONE TABLET BY MOUTH TWICE DAILY 05/19 completed Not Available Not Available Not Available prednisolon e acetate 1 % eye drops,suspe nsion Instill 1 DROP IN THE RIGHT EYE FOUR TIMES DAILY FOR 1 WEEK. 05/19 completed Not Available Not Available Not Available lorazepam 0.5 mg tablet TAKE 1/2 TO 1 TABLET BY MOUTH 60 minutes prios TO procedure . MAY repeast IF needed. 05/19 completed Not Available Not Available Not Available Valium 2 mg tablet Please take 1 tab 30 mins prior to MRI, MUST HAVE SEISMIC INTERPRETER 01/28 completed Not Available Not Available Not Available triamcinolo ne acetonide 40 mg/mL suspension for injection Take 1 mL by injection route. 2024 active Not Available Not Available Not Avai lable polymyxin B sulfate 10,000 unit-trimet hoprim 1 mg/mL eye drops INSTILL 1 DROP IN THE RIGHT EYE 4 TIMES A DAY 05/19 completed Not Available Not Available Not Available losartan 25 mg tablet TAKE 1 TABLET BY MOUTH EVERY DAY active Not Available Not Available No t Available diltiazem CD 120 mg capsule,ext ended release 24 hr TAKE ONE CAPSULE BY MOUTH EVERY DAY 05/19 completed Not Available Not Available Not Available gabapentin 100 mg capsule TAKE ONE CAPSULE BY MOUTH EVERY DAY FOR hip PAIN, MAY TAKE 2 CAPSULES IF needed. active Not Available Not Available No t Available metoprolol succinate ER 25 mg tablet,exte nded release 24 hr TAKE ONE TABLET BY MOUTH DAILY 05/19 completed Not Available Not Available Not Available estradiol 0.0375 mg/24 hr semiweekly transdermal patch Apply 1 PATCH transderm ally TWICE A WEEK. 05/19 completed Not Available Not Available Not Available hydromorpho ne 4 mg tablet Take 1 tablet every 4 hours by oral route. 02/28 completed Not Available Not Available Not Available doxycycline hyclate 100 mg tablet 05/19 completed Not Available Not Available Not Available progesteron e micronized 100 mg capsule TAKE ONE CAPSULE BY MOUTH DAILY AT BEDTIME. 05/19 completed Not Available Not Available Not Available estradiol 0.025 mg/24 hr semiweekly transdermal patch APPLY 1 PATCH topically TWICE A WEEK active Not Available Not Available No t Available nitrofurant oin monohydrate /macrocryst als 100 mg capsule 02/09 completed Not Available Not Available Not Available duloxetine 20 mg capsule,del ayed release TAKE 2 CAPSULES BY MOUTH AT BEDTIME active Not Available Not Available No t Available duloxetine 30 mg capsule,del ayed release TAKE ONE CAPSULE BY MOUTH EVERY DAY active Not Available Not Available No t Available lidocaine (PF) 10 mg/mL (1 %) injection solution Take 4 mL by injection route. 05/19 completed Not Available Not Available Not Available estradiol 0.25 mg/0.25 gram (0.1 %) transdermal gel packet Apply contents OF 1 PACKET topically DAILY DIRECTED. 09/03 completed Not Available Not Available Not Available duloxetine 40 mg capsule,del ayed release Take 1 capsule every day by oral route. 05/19 completed Not Available Not Available Not Available Sutab 1.479-0.188 -0.225 gram tablet 02/09 completed Not Available Not Available Not Available FreeStyle Nadiya 3 Plus Sensor device Use as directed 08/28 completed Not Available Not Available Not Available Vitals Date Recorded Body height Body mass index (BMI) Body weight Provider Name and Address Organization Details Last Updated DateTime 11/30/2024 165.1 cm 29.1 kg/m2 40929.66 g Aissatou Putnam [place] - [facility] 11/30/2024 10:50:40 Social History Question Answer Notes LastModified by Organizat ion Details LastModified Time Tobacco Smoking Status Former Smoker Not Available [facility] 02/12/2023 10:04:38 Do You Have An Advance Directive? Yes [email or web address]-13 Information n ot available 02/12/2023 Which Of Your Hands Is Dominant? Left [email or web address]-13 Information n ot available 02/12/2023 Have You Had A Flu Shot In The Past 12 Months? No [email or web address]-13 Information not available 02/12/2023 Have You Had A Pneumonia Vaccine In The Last 12 Months? No [email or web address]-13 Information not available 02/12/2023 Have You Received A Covid Vaccine? Yes [email or web address]-13 Information not available 02/12/2023 If So, When Was Your Last Covid Vaccine? 06/02/2021 [email or web address]-13 Information not available 02/12/2023 What Type Of COVID Vaccine? Moderna Booster [email or web address]-13 Information not available 02/12/2023 Have You Had Any Other Immunizations In The Past 14 Days? No API-13 Information no t available 02/12/2023 Do You Have A Medical Power Of Data Security Consultant? Yes [email or web address]-13 Information not available 02/12/2023 What Was The Date Of Your Most Recent Tobacco Screening? 11/20/2024 [email or web address]-13 Information not available 11/30/2024 Sex: Female Functional Status Question Answer Note LastModified by Organizat ion Details LastModified Time Do you or have you ever used any other forms of tobacco or nicotine? No API-13 Information not available 02/12/2023 What is your level of alcohol consumption? None API-13 Information not available 02/12/2023 Do you or have you ever used smokeless tobacco? 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 Never used electronic cigarettes [email or web address] Information not available 02/12/2023 Mental Status None recorded. Family History Relationship Description Onset Age of this Age Resolved Age Notes LastModified by Organization Details LastModified Time Father Family history of malignant neoplasm [email or web address] Not available 2024 10:40:01 Father Osteoarthrit is pt. added direct ly (02/09) [email or web address]-13 Not available 02/09/2023 14:03:05 Father History of carcinoma pt. added direct ly (02/09) [email or web address]-13 Not available 11/30/2024 10:40:01 Father Migraine pt. added direct ly (02/09) [email or web address]-13 Not available 02/09/2023 14:04:26 Father History of carcinoma 70 81 API-13 Not available 2024 10:40:01 Mother Family history of malignant neoplasm [email or web address] Not available 2024 10:40:01 Mother History of carcinoma pt. added direct ly (02/09) [email or web address]-13 Not available 11/30/2024 10:40:01 Mother History of carcinoma 67 69 API-13 Not available 2024 10:40:01 Brother Family history of malignant neoplasm [email or web address] Not available 2024 10:40:01 Brother History of carcinoma pt. added direct ly (02/09) [email or web address]-13 Not available 11/30/2024 10:40:01 Brother History of carcinoma 65 API-13 Not available 2024 10:40:01 Sister Diabetes mellitus [email or web address] Not available 2019 10:38:03 Paternal Aunt History of carcinoma pt. added direct ly (02/09) [email or web address]-13 Not available 02/09/2023 14:03:52 Maternal Grandmother History of carcinoma 81 pt. added direct ly (02/09) [email or web address]-13 Not available 11/30/2024 10:40:01 Paternal Grandmother Cerebrovascu lar accident pt. added direct ly (02/09) [email or web address]-13 Not available 02/09/2023 14:04:10 Paternal Grandfather Cerebrovascu lar accident pt. added direct ly (02/09) [email or web address]-13 Not available 02/09/2023 14:04:10 Daughter Asthma pt. added direct ly (05/19) [email or web address]-13 Not available 11/30/2024 10:40:01 Daughter Asthma 5 [email or web address]-13 Not available 0 11/30/2024 10:40:01 Medical History Condition Response HIV or AIDS N None N Leukemia N Irregular Heartbeat N MRSA N Mouth Sores N Previous Oral Steroid(s) N Sexually Transmitted Disease N Lung Disease N Blood Clots N Depression N COPD N Fever N Bipolar N Pacemaker N Patient reports no significant medical h istory N Sickle Cell Anemia N Colitis/Stomach Ulcers N Congestive Heart Failure N Anxiety Disorder N Dizziness Y Arthritis Y Thyroid Problems/Goiter N Cancer Y Chest Pain/Angina N Stroke N Stroke/TIA N Joint Stiffness Y High Cholesterol Y Previous Cortisone Injection(s) Y Loss of Consciousness Y Bleeding Problems N Rheumatoid Arthritis N Headaches Y Fibromyalgia N Swelling of Legs/Feet/Hands N Kidney Disease N Heart Problems N Osteoarthritis N Parkinson's Disease N Migraines Y Bleed or Bruise Easily Y ADD/ADHD N Lupus/SLE N Weight loss N Joint Pain Y Anemia N Eye Disease/Cataracts/Glaucoma N Poor Circulation N Weight Gain Y Previous Fracture(s) N Diabetes N Hepatitis/Liver Disease N Bleeding Disorder N Seizures/Epilepsy N Urinary Infection N Tuberculosis N Other: Y Dementia N Asthma N Excessive Thirst N Chronic Back Pain Y Drug dependency/Abuse N Psoriasis N Sleep apnea N Autism N Numbness/Tingling Y GERD/Reflux Y Pulmonary Embolis N GI Issues Specify: Y Hypertension Y Osteoporosis N Gynecological History Statement/Question Response Have you had a mammogram? Y Date of Last Mammogram 12/30/2023 Most Recent Bone Density 12/30/2023 Was the recent bone density a DEXA or DX A? Y Most Recent Mammogram 07/01/2018 Have you had a bone density test? N Obstetrics History GPAL:G 0 P 0 0 0 0 Immunizations Vaccine Type Date Status Note Provider Nam e and Address Organization Details Recorded Time SARS-COV-2 (COVID-19) vaccine, UNSPECIFIED 1 completed Gaby miles [facility] 11/11/2020 11:53:15 SARS-COV-2 (COVID-19) vaccine, UNSPECIFIED 1 completed Jared miles [facility] 08/09/2021 11:11:25 Influenza, split virus, quadrivalent, preservative 1 completed Jared miles [facility] 08/09/2021 11:11:34 Past Encounters Encounter ID Performer Location Encounter Start Date Encounter Closed Date Diagnosis/Indication Diagnosis SNOMED-CT Code Diagnosis ICD10 Code Diagnosis Note [id number] [facility] [address] [address] 11/30/2024 10:32:23 11/30/2024 11:42:25 Pain of right shoulder joint 5204869517 8443703 M25.511 Pain of le ft shoulder joint 7873321096 2705340 M25.512 Impingemen t syndrome of right shoulder region 8345934144 63492 M75.41 Impingemen t syndrome of left shoulder region 2211982051 74019 M75.42 Health Concerns Section Related Observation LastModified by Organization Detai ls LastModified Time None Recorded Concern Status LastModified by Organization Details LastModified Time None Recorded Payers Encounter Date Sequence Insurance Name Policy Number Policy Alejandro Covered Member ID Alejandro Member ID Guarantor Name 11/30/2024 1 [place] [id number] Bhumi Thompson [id number] Bhumi Thompson Notes Date Note Type Note Provider Name and Address Organization Details Recorded Time 11/30/2024 text/html [place] HPIReported bypatient.Who is your referring provider?Alma Hurd Please describe your Chief Complaint / Current Problem?Both shoulders, deltoid shoulder girdle down arms 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 (If none, write none or 0)) Have you had any previous work-related injuries? If yes, please explain:No What symptoms are you experiencing?Chron ic pain in both shoulders How long have you had this problem?1 years Have you had a similar pain in the past? If yes, when?Yes: How did your current problem happen? Please explain:N/A Work related?No Related to an injury? If yes, please provide date of injuryNo How severe is your pain currently on a scale from 0-10? (0= No pain 10= Worst Pain of my Life)5/ 10 What makes your pain worse? Please explain:Movement What makes your pain better? Please explain:Dual Any previous treatment for this problem?Physical Therapy;Chiropract or;Other Treatment: Steroid shot Have you had any of the following diagnostic studies for your problem? If so, when and where?X-Rays:Notes :Chief complaint: Bilateral shoulder pain History present illness: Patient is a 59-year-old female presents for bilateral shoulder pain. She had a subacromial injection in August with significant treatment in her left shoulder. She has had recurrent pain in both shoulders. She describes pain with range of motion. Denies any recent trauma. Reported by patient on 11/30/2024 Zachary Guerrero MD [facility] [place], [address], [facility] [facility] 11/30/2024 21:09:08 OBGyn Episode No OBEpisode recorded.
--- OUTSIDE RECORDS SUMMARY | 2024-12-01 14:49 | XMS_ITS | Referral Summary ---
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 us Provider Transcribed Order IMG MAMMO PROCEDURES Final Result from Last 3 Months or Most Recently Relevant to Health Maintenance Insurance [facility] [employer] [address] [place] [id number] [employer] [address] [facility] Care Teams Colorer Machine Relationship Specialty Start Date End Date Favian Tyler MD [address] [facility] [address] [place] [address] PCP - General Internal Medicine 12/30/20
== END 2024-12-01 14:47 | disposition home or self-care (01) ==
PROVIDERS: PCP Internal Medicine; Visit Provider Otolaryngology Otolaryngology/Facial Plastic Surgery
DX: J32.9 Chronic sinusitis, unspecified (principal)
CPT/HCPCS: 70486

== ENCOUNTER 2025-02-12 07:11 | Outpatient (CLI) | payer BC, OTHER, SELFPAY ==
--- NOTE | ~2025-02-12 | MM_ITS ---
EXAMINATION: MM screening liv BI w pina HISTORY: Screening TECHNIQUE: Craniocaudal and mediolateral oblique 3-D tomosynthesis images were obtained and synthetic 2-D images were generated. CAD analysis was submitted and interpreted. COMPARISON: Comparison to multiple prior studies sequentially, with oldest reviewed study dated 10/2018. BREAST PARENCHYMAL COMPOSITION: Not dense: There are scattered areas of fibroglandular density. FINDINGS: There is developing asymmetry in the lower central aspect of the right breast, anterior thi rd. The left breast is stable without evidence for malignancy. IMPRESSION: 1. Developing right breast asymmetry. 2. Additional mammographic views and possible breast ultrasound are recommended. BI-RADS Category 0: Incomplete: Needs additional imaging evaluation. Reviewed, dictated and finalized at location A. IMPRESSION: 1. Developing right breast asymmetry. 2. Additional mammographic views and possible breast ultrasound are recommended . BI-RADS Category 0: Incomplete: Needs additional imaging evaluation.
== END 2025-02-12 07:12 | disposition home or self-care (01) ==
LOC: CHSIMG 07:12
PROVIDERS: PCP Internal Medicine; Visit Provider Internal Medicine
DX: Z12.31 Encounter for screening mammogram for malignant neoplasm of breast (principal); R92.8 Other abnormal and inconclusive findings on diagnostic imaging of breast
CPT/HCPCS: 77063; 77067

== ENCOUNTER 2025-02-16 10:18 | Outpatient (CLI) | payer BC, OTHER, SELFPAY ==
--- NOTE | 2025-02-16 10:22 | ECG_ITS ---
Test Date: 2025-02-16 10:35:02 Measurements Intervals [place] Rate: 72 P: 35 GA: 163 QRS: -20 QRSD: 111 T: 52 QT: 380 QTc: 418 Interpretive Statements SINUS RHYTHM POSSIBLE ANTERIOR MYOCARDIAL INFARCTION BORDERLINE ST-T WAVE ABNORMALITY- HIGH LATERAL LEADS ABNORMAL ECG No previous ECG available for comparison Electronically Signed On 02-16-2025 10:41:36 CDT by Jony Burns D.O.
--- OUTSIDE RECORDS SUMMARY | 2025-02-16 10:47 | XMS_ITS | Clinical Summary ---
Author Organization [facility] Address [address] [place] [address] Care Team Providers Care Gynecology Teacher Name Role Phone Favian Tyler Aurelio DO Primary Care Provider [phone] Source Comments [facility] [employer],non-owned Affiliates and Associated Physician Practices is amultiple site organization consisting of ambulatory clinics and hospital sitesin [place], [place], [place] and [place]. This disclosure is being madepursuant to the Care Everywhere program and may not contain all information available regarding this patient. Last updated 18.[facility] [employer] Social History Tobacco Use Types Packs/Day Years [...] season) 2024 DEPRESSION SCREENING 07/01/2024 INFLUENZA VACCINE (#1) 2025 Respiratory Syncytial Virus (RSV) Vaccine Pt: [...] age to complete this topic Care Teams Gynecology Teacher Relationship Specialty Start Date End Date Favian Tyler DO [address] [facility] [address] [place] [address] PCP - General 01/28/19
--- OUTSIDE RECORDS SUMMARY | 2025-02-16 10:47 | XMS_ITS | Clinical Summary ---
Author Organization [facility] Address [address], [address] [address] Phone Care Team Providers Care Sap Specialist Name Role Phone Favian Tyler Aurelio DELACRUZ Primary Care Provider [phone] Allergies No known active allergies Medications lansoprazole [...] (HCV) Screening 1963 TdaP Immunization 1963 Cologuard 2008 Immunochemical Fecal Occult Blood 2008 Pneumococcal Immunization (5 0+ years) (1 of 1 - PCV) 2013 Zoster Immunization (1 of 2) 2013 Colonoscopy 01/14/2024 01/13/2019 Colorectal Cancer Screening 01/14/2024 SARS-COV-2 Immunization (1 - season) 2024 Influenza Immunization (#1) 2025 Respiratory Syncytial Virus (RSV) Immunization (Adult) (1 - 1-dose 75+ series) 2038 Hepatitis B Immunization Aged Out No longer eligible based on patient's age to complete this topic Human Papillomavirus (HPV) Immunization Aged Out No longer eligible b ased on patient's age to complete this topic Meningococcal Immunization (ACWY) Aged Out No longer eligible based on patient's age to complete this topic Rotavirus Immunization Aged Out No lo nger eligible based on patient's age to complete this topic Care Teams Sap Specialist Relationship Specialty Start Date End Date Favian Tyler DO [address] [place] [address] PCP - General Internal Medicine 12/09/18
--- OUTSIDE RECORDS SUMMARY | 2025-02-16 10:47 | XMS_ITS | Clinical Summary ---
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 Gender Identity Not on file Sexual Orientation [...] on file Medical Devices Implanted Type Area Glass Cut Off Supervisor Device Identifier Shelf Expiration Date Model / Serial / Lot Devicor [employer] [id number] Magseed 18ga 7cm Marker Breast Biopsy - [id number] Implanted:Qty: 1 on 03/07/2021 at [facility] Right: Breast [employer] [id number] / / Insurance [facility] CHOICE PLUS [facility] HMO/PPO Address: [address] [facility] H[facility]/PPO Address: [address] [address] [place] [address] [facility] CHOICE PLUS [facility] HMO/PPO Address: [address] [place] [address] [facility]ALTHCARE [facility] HMO/PPO Address: [address] [address] [facility] HMO/PPO Address: [address] [facility] HMO/PPO Address: [address] [address] Care Teams Lombardi Developer Relationship Specialty Start Date End Date Favian Tyler MD [address] [place] [address] PCP - General Internal Medicine 12/30/20
--- OUTSIDE RECORDS SUMMARY | 2025-02-16 10:48 | XMS_ITS | Encounter Summary ---
Author Organization [facility] Address [address] [address] Care Team Providers Care Die Storage Clerk Name Role Phone Favian Tyler DO Primary Care Provider [phone] Encounter Details Date Type Department Care Team (Late st Contact Info) Description 05/19/2020 Lab Requisition [facility] DermPath Lab [address] [place] [id number] Bull Zamudio MD [address] [place] [address] Social History Tobacco Use Types [...] Comments DERMATOPATHOLOGY Routine 05/18/2020 12:0 0 AM E COMMERCE PROJECT MANAGER documented in this encounter Results * DERMATOPATHOLOGY (05/18/2020 12:00 AM E COMMERCE PROJECT MANAGER) Case Report Dermatopathology Report Case: [id number] Authorizing Provider: Bull Zamudio MD Collected: 05/18/2020 12:00 AM Ordering Location: [facility] Received: 05/19/2020 11:29 AM Pathologist: Marta Nguyen MD Specimen: Skin, left upper breast 0 6:24 PM E COMMERCE PROJECT MANAGER DERMATOPATHOLOGY LABORATORY Final Diagnosis Specimen A. SKIN, left upper breast: LICHEN PLANUS-LIKE KERATOSIS (BENIGN LICHENOID KERATOSIS) (L82.1) 0 6:24 PM E COMMERCE PROJECT MANAGER DERMATOPATHOLOGY LABORATORY at [address] E COMMERCE PROJECT MANAGER Clinical History R/O ISK, BCC, Drake's, SCC. 0 6:24 PM E COMMERCE PROJECT MANAGER DERMATOPATHOLOGY LABORATORY Gross Description Specimen A: Received is one formalin filled container labeled with the patient's name and designated left upper breast. The specimen consists of a shave biopsy measuring 1c4f9he. Jar 0. 0 6:24 PM E COMMERCE PROJECT MANAGER DERMATOPATHOLOGY LABORATORY Microscopic Description Specimen A. SKIN, left upper breast: The epidermis is mildly acanthotic. There is a lichenoid infiltrate with vacuolar changes of basilar keratinocytes and scattered necrotic keratinocytes. 0 6:24 PM E COMMERCE PROJECT MANAGER DERMATOPATHOLOGY LABORATORY Disclaimer An external and internal positive and negative controls are appropriate for the histochemical, immunohistochemical and immunofluorescence stain(s) in this case (if any), except where stated explicitly. The performance characteristics of the stain(s) cited in this report were developed and its performance characteristic determined by the Dermatopathology Laboratory at [facility], directed by Dr. Alexandra Lieberman. These tests need not be, and therefore are not, approved by the [place] Food and Drug Administration. The tests are used for clinical purposes. Billing Codes Specimen Charges Stain Charges 28413 1 0 6:24 PM E COMMERCE PROJECT MANAGER DERMATOPATHOLOGY LABORATORY Embedded Images 0 6:24 PM E COMMERCE PROJECT MANAGER DERMATOPATHOLOGY LABORATORY Pathology/Cytolog y TISSUE SPECIMEN FROM SKIN / Unknown 05/18/2020 05/19/2020 11:29 AM E COMMERCE PROJECT MANAGER Bull Zamudio MD LAB - PATHOLOGY/CYTOLOGY ORD ERABLES Final Result DERMATOPATHOLOGY LABORATORY [facility] - Department of Dermatology [facility] [address] [place] [address], 3rd [place] [address], [facility] [phone] documented in this encounter Visit Diagnoses Not on filedocumented in this encounter Care Teams Die Storage Clerk Relationship Specialty Start Date End Date Favian Tyler DO [address] [place] [address] PCP - General 01/28/19 documented as of this encounter
--- OUTSIDE RECORDS SUMMARY | 2025-02-16 10:48 | XMS_ITS | Encounter Summary ---
Author Organization [facility] Address [address] [place] [address] Care Team Providers Care Web Graphic Designer Name Role Phone Favian Tyler DO Primary Care Provider [phone] Encounter Details Date Type Department Care Team (Late st Contact Info) Description 09/10/2019 Lab Requisition [facility] DermPath Lab [address] [place] [phone] Bull Zamudio MD [address] [place] [address] Social History Tobacco Use Types [...] AM CDT) Case Report Dermatopathology Report Case: [id number] Authorizing Provider: Bull Zamudio MD Collected: 09/09/2019 12:00 AM Ordering Location: [facility] Derm[facility] Lab Received: 09/10/2019 12:50 PM Pathologist: [...] specimen consists of a shave biopsy measuring 19x4b3gn. Jar 0. 0 3:40 PM CDT DERMATOPATHOLOGY [...] characteristic determined by the Dermatopathology Laboratory at [facility], directed by Dr. Alexandra Lieberman. These tests need not be, and therefore are not, approved by the [place] Food and Drug Administration. The tests are used for clinical purposes. Billing Codes Specimen Charges Stain Charges 69667 1 0 3:40 PM CDT DERMATOPATHOLOGY LABORATORY Embedded Images 0 3:40 PM CDT DERMATOPATHOLOGY LABORATORY Pathology/Cytolog y TISSUE SPECIMEN FROM SKIN / Unknown 09/09/2019 09/10/2019 12:50 PM CDT us Bull Zamudio MD LAB - PATHOLOGY/CYTOLOGY ORD ERABLES Final Result DERMATOPATHOLOGY LABORATORY [facility] - Department of Dermatology [facility] [facility] [place], 5th [place] [address], [facility] [phone] documented in this encounter Visit Diagnoses Not on filedocumented in this encounter Care Teams Web Graphic Designer Relationship Specialty Start Date End Date Favian Tyler DO [address] [facility] [address] [place] [address] PCP - General 7/31/19 documented as of this encounter
== END 2025-02-16 10:19 | disposition home or self-care (01) ==
LOC: ANHSURGERY 10:21
PROVIDERS: PCP Internal Medicine; Visit Provider Otolaryngology Otolaryngology/Facial Plastic Surgery
DX: E78.5 Hyperlipidemia, unspecified (principal); R94.31 Abnormal electrocardiogram [ECG] [EKG]
CPT/HCPCS: 93005

== ENCOUNTER 2025-02-19 01:54 | Day surgery (SDC) | payer BC, OTHER, SELFPAY ==
--- OUTSIDE RECORDS SUMMARY | 2006-10-29 11:23 | XMS_ITS | Continuity of Care Document ---
Author Organization [facility] Address [address] [place] [address] Exec utive [facility] [address] [place] [address] Phone Care Team Providers Care Crate Icer Name Role Phone Devi Galo Unavailable Unavailable Procedures Procedure Date Remove Eyelid Lesion Advance Directives Directive Yes / No Effective Date File Name No Information Encounters Encounter Description Practice Location Reason(s) For Visit Diagnoses Date Provider Providers Copied on Encounter [facility], [address] [place] [address] [address], [place], [place], [id number], [place] tel:[phone] [facility] No Information [address] [facility] [address] , [address], [place], [address], [place]. tel:[phone] Referring Provider: Carlos Mccann OD, [address] [place], [address]. tel:[phone] Family History Family Member Type Diagnosis Age At Onset No Information Payers Payer name Insurance type Covered libertarian ID Authoriza tion(s) BCBS [place] Out Of [place] [id number] Social History Type Description Quantity Date Captured [...]
[2025-02-05 14:51] VITALS: BMI 26.6
--- NOTE | 2025-02-05 15:17 | PC.NURSE ---
Report to the Outpatient Waiting Room, entrance under the green pavilion located off [facility], at time _1030 on date _02/05/25 . Planned Procedure Time: 1230 .? Time changes happen often and if your time is changed the preop area will call you the afternoon before. - You and your visitor will be asked to self-screen and do not enter if you have any COVID symptoms. Please call surgeon if you need to reschedule. - A mask is optional within the hospital at this time. Patients may have clear liquids (water, carbonated beverages, clear teas, apple juice) until 3 hours prior to surgery with a maximum of 20 ounces. - No food from midnight until time of surgery and no smoking, or chewing tobacco (or any form of nicotine). No chewing gum, candy or mints. - Take only the following medications with a SIP of water on the morning of surgery: FLUOXETINE DO NOT STOP ANY OF YOUR OTHER PRESCRIPTION MEDICATIONS PRIOR TO SURGERY EXCEPT THE FOLLOWING Hold all vitamins and supplements for 3 days per anesthesiologist. Medications to discontinue per physician 02/16/25 Date to take last dose Please no make-up, nail mongolian, hairspray, perfume, deodorant, or body powder the day of surgery.? No jewelry (including any body piercings) or valuables the day of surgery, leave them at home.? Please take a shower or bath the night before, or the morning of, surgery with an antibacterial soap.? Wear comfortable, loose fitting clothing.? - Jewelry must be removed prior to entering the operating room.? Rings and piercings that are not removed may be cut off. - The hospital will not accept responsibility for valuables.? - Please leave all valuables, including medications, at home the day of surgery. If you are going home after surgery, a licensed catshovel driver must drive you home.? - NO public transportation without another adult if you receive anesthesia. - We recommend that an adult stay with you for 24 hours following discharge. - We also recommend that you do not drive, make important decision, drink alcoholic beverages, or take any drugs that were not prescribed by your health care provider for at least 24 hours after your discharge time. Follow any additional instructions given to you from your surgeon. Telephone instructions given to _DONNA and asked if any additional questions and then verbalized understanding. Patient advised to call surgeon office or pre surgery nurse liaison [phone] if any additional questions.
[2025-02-19] VITALS (8 sets, daily range): BP systolic 112–139; BP diastolic 65–87; PULSE 61–88; RESP 14–18; TEMP 36.2–36.4; O2SAT 92–100; BMI 27.3
--- OUTSIDE RECORDS SUMMARY | 2025-02-19 01:58 | XMS_ITS | Encounter Summary ---
Author Organization [facility] Address [address] [place] [address] Care Team Providers Care Media Developer Name Role Phone Favian Tyler DO Primary Care Provider [phone] Encounter Details Date Type Department Care Team (Late st Contact Info) Description 09/10/2019 Lab Requisition [facility] DermPath Lab [address] [place] [phone] Bull Zamudio MD [address] [place] [address] Social History Tobacco Use Types [...] AM CDT) Case Report Dermatopathology Report Case: [id number] Authorizing Provider: Bull Zamudio MD Collected: 09/09/2019 12:00 AM Ordering Location: [facility] DermPath Lab Received: 09/10/2019 12:50 PM [...] specimen consists of a shave biopsy measuring 46c4h1qb. Jar 0. 0 3:40 PM CDT DERMATOPATHOLOGY [...] characteristic determined by the Dermatopathology Laboratory at [facility], directed by Dr. Alexandra Lieberman. These tests need not be, and therefore are not, approved by the [place] Food and Drug Administration. The tests are used for clinical purposes. Billing Codes Specimen Charges Stain Charges 24100 1 0 3:40 PM CDT DERMATOPATHOLOGY LABORATORY Embedded Images 0 3:40 PM CDT DERMATOPATHOLOGY LABORATORY Pathology/Cytolog y TISSUE SPECIMEN FROM SKIN / Unknown 09/09/2019 09/10/2019 12:50 PM CDT us Bull Zamudio MD LAB - PATHOLOGY/CYTOLOGY ORD ERABLES Final Result DERMATOPATHOLOGY LABORATORY [facility] - Department of Dermatology [facility] [facility], 5th [place] [address], [facility] [phone] documented in this encounter Visit Diagnoses Not on filedocumented in this encounter Care Teams Media Developer Relationship Specialty Start Date End Date Favian Tyler DO [address] [facility] [address] [place] [address] PCP - General 7/31/19 documented as of this encounter
--- OUTSIDE RECORDS SUMMARY | 2025-02-19 01:58 | XMS_ITS | Clinical Summary ---
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 Gender Identity Not on file Sexual Orientation [...] on file Medical Devices Implanted Type Area Drone Pilot Device Identifier Shelf Expiration Date Model / Serial / Lot Devicor [employer] [id number] Magseed 18ga 7cm Marker Breast Biopsy - [id number] Implanted:Qty: 1 on 03/07/2021 at [facility] Right: Breast [employer] [id number] / / Insurance [facility] CHOICE PLUS [address] [facility] CHO[facility] PLUS HEALTHCARE Member Subscriber Plan / Payer (Ef fective 2021-Present) Name:Bhumi Thompson Relation to Subscriber:Self Name:Jay Bhumi L Payer ID:[id number] ([facility]) Type:[facility] H[facility]/PPO Address: [address] HEALTHCARE Care Teams Environmental Auditor Relationship Specialty Start Date End Date Favian Tyler MD [address] [place] [address] PCP - General Internal Medicine 12/30/20
--- OUTSIDE RECORDS SUMMARY | 2025-02-19 01:58 | XMS_ITS | Clinical Summary ---
Author Organization [facility] Address [address], [address] [address] Phone Care Team Providers Care Commercial Photographer Name Role Phone Favian Tyler Aurelio DELACRUZ Primary Care Provider [phone] [phone] Allergies No known active allergies Medications lansoprazole [...] age to complete this topic Care Teams Commercial Photographer Relationship Specialty Start Date End Date Favian Tyler DO [address] [place] [address] PCP - General Internal Medicine 12/09/18
--- OUTSIDE RECORDS SUMMARY | 2025-02-19 01:58 | XMS_ITS | Clinical Summary ---
Author Organization [facility] Address [address] [place] [address] Care Team Providers Care Certified Shorthand Reporter Name Role Phone Conner Matute DO Primary Care Provider [phone] Medications FLUoxetine (PROZAC) 20 MG capsule Take 1 capsule (20 mg total) by mouth daily. Active rosuvastatin (CRESTOR) 5 MG tablet Take 1 tablet (5 mg total) by mouth nightly at bedtime. Active omeprazole (PRILOSEC) 20 MG capsule Take 1 capsule (20 mg total) by mouth daily. Active Zinc 50 MG Tab Take 50 mg by mouth daily. Active vitamin C (ASCORBIC ACID) 250 MG tablet Take 1 tablet (250 mg total) by mouth daily. Active Active Problems Problem Noted Date Diagnosed Date History of colon polyps 12/02/2023 Family history of rectal cancer 12/02/2023 Resolved Problems Problem Noted Date Diagnosed Date Resolved Date Screening for colon cancer 12/02/2023 0 12/09/2023 Screening for colon cancer 12/02/2023 0 12/16/2023 Screening for colon cancer 12/02/2023 0 12/23/2023 Family History Medical History Relation Comments Rectal cancer Father Ulcerative Colitis Father Relation Status Comments Father Social History Tobacco Use Types Packs/Day Years Used Date Smoking Tobacco: Never Smokeless Tobacco: Never Alcohol Use Standard Drinks/Week Comments Not Currently 0 (1 standard drink = 0.6 oz pur e alcohol) PHQ-2 Answer Date Recorded Patient Health Questionnaire-2 Score 0 11/29/2023 Comments Unknown Sex and Gender Information Value Date Recorded Sex Assigned at Not on file Legal Sex Female 1:10 PM CDT Gender Identity Not on file Sexual Orientation Not on file Last Filed Vital Signs Vital Sign Reading Time Taken Comments Blood Pressure 107/65 01/09/2024 12:50 PM CDT Pulse 70 01/09/2024 12:50 PM CDT Temperature 36.2 C (97.2 F) 01/09/2024 12:35 PM CDT Respiratory Rate 18 01/09/2024 12:50 PM CDT Oxygen Saturation 92% 01/09/2024 12:50 PM CDT Inhaled Oxygen Concentration - - Weight 70.3 kg (155 lb) 12/27/2023 11:32 AM CDT Height 160 cm (5' 3) 12/27/2023 11:32 AM CDT Body Mass Index 27.46 12/27/2023 11:32 AM CDT Plan of Treatment Health Maintenance Due Date Last Done Comments Annual Physical 1966 Hepatitis C 1981 DTaP, Tdap and Td Vaccines ( 1 - Tdap) 1982 Pneumococcal Vaccine: 50+ Ye ars (1 of 1 - PCV) 2013 Zoster Vaccines (1 of 2) 2013 Mammogram Screening 12/12/2023 12/11/2021 COVID-19 Vaccine (1 - 2023-2 5 season) 2024 PHQ-2 (Physician [place]) 07/01/2024 11/29/2023 Colorectal Cancer Screening Colonoscopy (10 Years) 01/08/2034 01/09/2024 RSV Immunization or 60+ Years (1 - 1-dose 75+ series) 2038 Meningococcal B Vaccine Aged Out No l onger eligible based on patient's age to complete this topic Meningococcal Vaccine Aged Out No agatha poncho eligible based on patient's age to complete this topic RSV Immunizations Under 20 Months Aged Out No longer eligible based on patient's age to complete this topic Insurance [facility] Care Teams Certified Shorthand Reporter Relationship Specialty Start Date End Date Conner Matute DO [address] [place] [address] PCP - General INTERNAL MEDICINE 11/29/23
--- OUTSIDE RECORDS SUMMARY | 2025-02-19 01:58 | XMS_ITS | Encounter Summary ---
Author Organization [facility] Address [address] [place] [address] Care Team Providers Care Rodeo Clown Name Role Phone Favian Tyler DO Primary Care Provider [phone] Encounter Details Date Type Department Care Team (Late st Contact Info) Description 05/19/2020 Lab Requisition [facility] [address] [place] [id number] Bull Zamudio MD [address] [place] [address] Social History Tobacco Use Types [...] Comments DERMATOPATHOLOGY Routine 05/18/2020 12:0 0 AM NURSING ATTENDANT documented in this encounter Results * DERMATOPATHOLOGY (05/18/2020 12:00 AM NURSING ATTENDANT) Case Report Dermatopathology Report Case: [id number] Authorizing Provider: Bull Zamudio MD Collected: 05/18/2020 12:00 AM Ordering Location: [facility] Received: 05/19/2020 11:29 AM Pathologist: Marta Nguyen MD Specimen: Skin, left upper breast 0 6:24 PM NURSING ATTENDANT DERMATOPATHOLOGY LABORATORY Final Diagnosis Specimen A. SKIN, left upper breast: LICHEN PLANUS-LIKE KERATOSIS (BENIGN LICHENOID KERATOSIS) (L82.1) 0 6:24 PM NURSING ATTENDANT DERMATOPATHOLOGY LABORATORY at 1824 NURSING ATTENDANT Clinical History R/O ISK, BCC, Drake's, SCC. 0 6:24 PM NURSING ATTENDANT DERMATOPATHOLOGY LABORATORY Gross Description Specimen A: Received is one formalin filled container labeled with the patient's name and designated left upper breast. The specimen consists of a shave biopsy measuring [id number]. Jar 0. 0 6:24 PM NURSING ATTENDANT DERMATOPATHOLOGY LABORATORY Microscopic Description Specimen A. SKIN, left upper breast: The epidermis is mildly acanthotic. There is a lichenoid infiltrate with vacuolar changes of basilar keratinocytes and scattered necrotic keratinocytes. 0 6:24 PM NURSING ATTENDANT DERMATOPATHOLOGY LABORATORY Disclaimer An external and internal positive and negative controls are appropriate for the histochemical, immunohistochemical and immunofluorescence stain(s) in this case (if any), except where stated explicitly. The performance characteristics of the stain(s) cited in this report were developed and its performance characteristic determined by the Dermatopathology Laboratory at [facility], directed by Dr. Alexandra Lieberman. These tests need not be, and therefore are not, approved by the [place] Food and Drug Administration. The tests are used for clinical purposes. Billing Codes Specimen Charges Stain Charges 22998 1 0 6:24 PM NURSING ATTENDANT DERMATOPATHOLOGY LABORATORY Embedded Images 0 6:24 PM NURSING ATTENDANT DERMATOPATHOLOGY LABORATORY Pathology/Cytolog y TISSUE SPECIMEN FROM SKIN / Unknown 05/18/2020 05/19/2020 11:29 AM NURSING ATTENDANT Bull Zamudio MD LAB - PATHOLOGY/CYTOLOGY ORD ERABLES Final Result DERMATOPATHOLOGY LABORATORY [facility] - Department of Dermatology [facility] [address] [place] [address], [address] [place] [address], [facility] [phone] documented in this encounter Visit Diagnoses Not on filedocumented in this encounter Care Teams Rodeo Clown Relationship Specialty Start Date End Date Favian Tyler DO [address] [place] [address] PCP - General 01/28/19 documented as of this encounter
--- NOTE | 2025-02-19 07:30 | P.OP_ITS ---
Procedure Note - Detailed Date of Procedure 02/19/25 Pre-op Diagnosis nasal congestion, hypertrophy of turbinates Post-op Diagnosis Same Procedure Performed ? Bilateral inferior turbinate reduction (intramural (submucosal) ablation of the inferior turbinate.) ? Therapeutic fracture of the inferior turbinates bilaterally. Surgeon Chika Vega MD Anesthesia General Indications nasal congestion hypertrophy of nasal turbinates Description of Procedure The patient was seen in the preoperative area, informed consent was checked and confirmed. The patient was taken to the operating room, sedated and placed under general anesthesia with an endotracheal tube . Eyes were taped and were prepped and draped in the usual sterile fashion. We proceeded with submucosal inferior turbinate reduction, starting on the right side, a stab incision was made anterior mucosa of inferior turbinate. Submucosal pocket was created along the length of the inferior turbinate and the microdebrider blade 2mm thick was introduced anteriorly and into the whole submucosal pocket. Microdebrider was then used to remove the hypertrophied bony parts of anterior turbinate head and soft tissue with the outer layer intact. The residual inferior turbinate was then out fractured using Boies elevator. We proceeded to the left side. A stab incision was made on the anterior mucosa of inferior turbinate. Submucosal pocket was created along the length of the inferior turbinate and the microdebrider blade 2 mm thick was introduced anteriorly and into the whole submucosal pocket. Microdebrider was then used to remove the hypertrophied bony parts of anterior turbinate head and soft tissue with the outer layer intact. The residual inferior turbinate was then out fra ctured using Boies elevator.Surgicel absorbable packing was placed over the incision The nose was then suctioned clean and at this point the care of the patient was then transferred to the anesthesiologist where the patient emerged from general anesthesia without complication. Estimated Blood Loss 5 (ml) Packing Yes (absorbable packing) Complications No immediate complications Condition Stable Disposition PACU [facility] Billing Surgery - Charge Forward: Surgery Billing
[2025-02-19] MEDS: LACTATED RINGERS 1,000 ML 30 ML IV CONT (11:20)
[2025-02-19] MEDS: OXYMETAZOLINE HCL 0.05% NAS 15 ML BTL (*BKC) 2 SPRAY NASAL ×3 (11:40→11:50)
[2025-02-19] MEDS: dexAMETHasone SOD PHOS INJ 10 MG/ML 1 ML VIAL IV PUSH (11:40)
[2025-02-19] MEDS: ACETAMINOPHEN 500 MG TABLET 1000 MG PO (11:40)
--- NOTE | 2025-02-19 13:07 | WPDHPUPDATE1 ---
History and Physical Update Update Date/Time: 02/19/25 13:07 History and Physical has been reviewed, including an updated exam of the patient. There are NO changes in the patient's condition. Risks, benefits, and alternatives have been discussed and questions answered. Patient agrees to proceed with procedure.
--- NOTE | 2025-02-19 13:08 | PM.IMHP ---
H&P: HPI History of Present Illness Date/Time: 02/19/25 13:08 Chief Complaint: nasal congestion Review of Systems Review of Systems: All systems reviewed & are unremarkable except as noted in HPI and below Constitutional: Constitutional: Reports as per HPI ENT: Reports as per HPI Respiratory: Respiratory: Reports as per HPI Gastrointestinal: Gastrointestinal: Reports as per HPI [facility] Past Medical History Medical History Dysfunction of both eustachian tubes Allergic rhinitis Hypertrophy of nasal turbinates Chronic ethmoidal sinusitis Acute sinusitis Family History Family History Mother No problems noted. Father Patient's father is in good health Social History Social History Social History: Caffeine-coffee Smoking status: Never smoker Second hand tobacco smoke exposure: No Alcohol intake: never Substance use: never Substance use type: does not use Do You Feel Safe in your Home?: Yes Lack of Transportation: No Lack of Food: Never True Current Housing: I Have Housing Concerned About Future Housing: No Difficulty Paying Gas/Electric Bills: No Difficulty Paying for Meds: No Currently Unemployed: No Education: High School Diploma/GED Difficulty w/ Childcare or Family Care: No Living arrangements: with family Additional living arrangements comments: [place] [phone] Spiritual care concerns: No Meds Home Medications and Allergies Home Medications ?Medication ?Instructions ?Recorded ?Confirmed ?Type rosuvastatin 5 mg tablet 5 mg PO DAILY #100 tabs 03/26/24 02/05/25 Rx fluoxetine 20 mg capsule 20 mg PO DAILY #100 caps 08/19/24 02/19/25 Rx azelastine 137 mcg (0.1 %) nasal 137 mcg (0.137 mL) intranasal Q12H 10/09/24 02/05/25 Rx spray 1 month #8.22 mL ascorbate calcium (vitamin C) 1 tablet PO DAILY 12/28/24 02/19/25 History mecobalamin (vitamin B12) 1 tablet PO DAILY 12/28/24 02/19/25 History zinc acetate 1 cap PO DAILY 12/28/24 02/19/25 History Allergies Allergy/AdvReac Type Severity Reaction Status Date / Time No Known Allergies Allergy Verified 02/19/25 12:03 Vital Signs Vital Signs - 24 hr 02/19/25 11:00 Temperature 36.2 C L Pulse Rate 67 Respiratory Rate 14 Blood Pressure 123/83 Pulse Oximetry 95 Exam Const: General: cooperative, healthy appearing, comfortable, no acute distress, well developed, alert, awake and Physically active Orientation/consciousness: oriented to person, oriented to place, oriented to time and patient oriented x3 HENMT: Head: normocephalic and atraumatic Ears: external ears normal and EAC's normal Face/Nose/Sinus: Normal external nose present and Normal nares present Mouth: Yes Normal oral and palatal mucosa present, Yes lip normal and Yes tongue normal Other: hypertrophy of inferior turbinates Eyes: General: appearance normal, both eyes and all related structures Neck: Neck: normal visual inspection, full ROM and trachea midline Resp: Effort & Inspection: normal respiratory effort and able to speak in complete sentences Cardio: Rate: regular rate Neuro: General: oriented to person, oriented to place, oriented to time and patient oriented x3 Assessment and Plan Assessment and plan (1) Hypertrophy of nasal turbinates: Code(s): J34.3 - Hypertrophy of nasal turbinates Status: Acute Plan Assessment & Plan (1) Nasal congestion: Code(s): R09.81 - Nasal congestion Category: Medical (2) Hypertrophy of nasal turbinates: Code(s): J34.3 - Hypertrophy of nasal turbinates Category: Medical Plan 59-year-old female with hypertrophy of nasal turbinates not improving on topical nasal sprays I have personally reviewed the imaging study the patient performed and i agree with the report except i will add that there is significant nasal obstruction due to hypertrophy of nasal turbinates bilaterally I have also reviewed the imaging study with the patient ct sinuses 12/01/2024:There is no significant mucosal thickening or air-fluid level. No mucoperiosteal reaction. Mastoids are pneumatized. Leftward nasal septal deviation. Ostiomeatal units are patent. Mastoids are pneumatized. Will order bilateral inferior turbinate reduction under general anesthesia I have discussed with the patient that she will need to continue nasal sprays after the surgery in order to maintain the results of turbinate reduction has allergies can trigger again more allergic response and cause 3 enlargement of the inferior turbinates Potential Risks of Turbinate Reduction: Bleeding: Nosebleeds are common after surgery, and significant bleeding can sometimes require intervention. Infection: Although rare, infection is a risk with any surgery and can be treated with antibiotics. Empty Nose Syndrome: This occurs when too much tissue is removed and the patient experiences a persistent sensation of nasal blockage despite adequate airflow. Adhesions: Scar tissue can form, bridging the turbinate to the septum and causing blockage. Nasal Dryness: The nose may feel dry, and crusting can occur. Change in Sense of Smell: In rare cases, a change in the sense of smell can occur. Return of Nasal Blockage: The nasal blockage can return or persist after surgery. Loss of Sensation: Nerve damage can cause a loss of feeling in the skin on the nose. Fluid Buildup: Fluid can accumulate in the nose after surgery. Anosmia: Loss of smell can occur, though it is rare.
--- NOTE | 2025-02-19 13:09 | WPDANESEPPF ---
Anes - Initial Pre Proc Eval Procedure: Operation Date: 02/19/25 13:00 Proposed Procedures p Bilateral Inferior Turbinate Reduction with Submucous Resection - Chika Vega MD Date/Time: 02/19/25 13:09 Surgeon: Chika Vega MD Pre Op Diagnosis: nasal congestion, hypertrophy of turbinates Patient Data Age: 59 Gender: F Height: 1.6 m Weight: 70 kg Last Vital Signs Temp 97.2 F L 02/19/25 11:00 Pulse 67 02/19/25 11:00 Resp 14 02/19/25 11:00 BP 123/83 02/19/25 11:00 Pulse Ox 95 02/19/25 11:00 Allergies Allergy/AdvReac Type Severity Reaction Status Date / Time No Known Allergies Allergy Verified 02/19/25 12:03 Home Medications ?Medication ?Instructions ?Recorded ?Confirmed ?Type rosuvastatin 5 mg tablet 5 mg PO DAILY #100 tabs 03/26/24 02/05/25 Rx fluoxetine 20 mg capsule 20 mg PO DAILY #100 caps 08/19/24 02/19/25 Rx azelastine 137 mcg (0.1 %) nasal 137 mcg (0.137 mL) intranasal Q12H 10/09/24 02/05/25 Rx spray 1 month #8.22 mL ascorbate calcium (vitamin C) 1 tablet PO DAILY 12/28/24 02/19/25 History mecobalamin (vitamin B12) 1 tablet PO DAILY 12/28/24 02/19/25 History zinc acetate 1 cap PO DAILY 12/28/24 02/19/25 History Patient hx anesthesia problems: none Family hx anesthesia problems: none Results Review: All pre-operative results and documents have been reviewed as part of the pre-operative evaluation. [facility] Past Medical History Medical History Dysfunction of both eustachian tubes Allergic rhinitis Hypertrophy of nasal turbinates Chronic ethmoidal sinusitis Acute sinusitis Family History Family History Mother No problems noted. Father Patient's father is in good health Social History Social History Social History: Caffeine-coffee Smoking status: Never smoker Second hand tobacco smoke exposure: No Alcohol intake: never Substance use: never Substance use type: does not use Do You Feel Safe in your Home?: Yes Lack of Transportation: No Lack of Food: Never True Current Housing: I Have Housing Concerned About Future Housing: No Difficulty Paying Gas/Electric Bills: No Difficulty Paying for Meds: No Currently Unemployed: No Education: High School Diploma/GED Difficulty w/ Childcare or Family Care: No Living arrangements: with family Additional living arrangements comments: [place] [phone] Spiritual care concerns: No Anes - Eval Final PreProcedure Day of Procedure 02/19/25 13:09 Patient weight: normal Lungs: normal air movement Airway: Mallampati scale class II Neurological: alert and oriented Last oral intake: >/= 8 hours ASA classification: II Emergent: no Anesthetic plan: proceed Anesthesia type and monitoring: general ETT and standard monitoring Results Review: All pre-operative results and documents have been reviewed as part of the pre-operative evaluation. Hyperlipidemia, overall good functional status, no cp or sob w walking 1-2 fos. Informed Consent: The patient's anesthetic plan and its attendant risks and benefits were discussed with the patient/family/POA. Questions were solicited and answers provided to the satisfaction of the patient/family/POA.
[2025-02-19] MEDS: ceFAZolin 2 GM in SODIUM CHLORIDE 0.9% IV 50 ML 100 ML IVPB (13:25)
[2025-02-19] MEDS: LIDO 1%/EPINEPHRINE 1:100,000 50 ML VIAL INFILTRATE (13:39)
== END 2025-02-19 16:14 | disposition home or self-care (01) ==
PROVIDERS: PCP Internal Medicine; Visit Provider Otolaryngology Otolaryngology/Facial Plastic Surgery
PROC: (CPT 30802; principal; 2025-02-19 13:00)
DX: R09.81 Nasal congestion (principal); J34.3 Hypertrophy of nasal turbinates; J32.2 Chronic ethmoidal sinusitis; E78.5 Hyperlipidemia, unspecified
CPT/HCPCS: 30802; J0690; A9270; J1100; J2003; J2004; J2250; J2270; J2405; J2704; J3010; J7040; J7120

== ENCOUNTER 2025-03-02 09:13 | Outpatient (CLI) | payer BC, OTHER, SELFPAY ==
--- OUTSIDE RECORDS SUMMARY | 2006-10-29 11:23 | XMS_ITS | Continuity of Care Document ---
Author Organization [facility] Address [address] [place] [address] Exec utive [facility] [address] [place] [address] Phone Care Team Providers Care Clinical Haematologist Name Role Phone Devi Galo Unavailable Unavailable Procedures Procedure Date Remove Eyelid Lesion Advance Directives Directive Yes / No Effective Date File Name No Information Encounters Encounter Description Practice Location Reason(s) For Visit Diagnoses Date Provider Providers Copied on Encounter [facility], [address] [place] [address] [address], [place], [place], [id number], [place] tel:[phone] [facility] No Information [address] [facility] [address] , [address], [place], [address], [place]. tel:[phone] Referring Provider: Carlos Mccann OD, [address] [place], [address]. tel:[phone] Family History Family Member Type Diagnosis Age At Onset No Information Payers Payer name Insurance type Covered democrat ID Authoriza tion(s) [place] [id number] Social History Type Description Quantity Date Captured Comments Sex Female Smoking Status No Information Chief Complaint And Reason For Visit No Information Reason For Referral Reason For Referral No Information History Of Present Illness Encounter Date Complaint History Of Prese nt Illness No Information Functional Status Date Functional Assessmen t No Information Instructions Date Instruction Additional Infor mation No Information Assessments Type Assessment Date No Information Patient Care Teams Name Effective Dates (start - stop) Status Members No Information
--- NOTE | ~2025-03-02 | MMUS_ITS ---
EXAMINATION: MM diagnostic liv RT w pina, US breast RT limited HISTORY: Inconclusive mammogram. Developing right breast asymmetry in the lower central aspect of the right breast, anterior third TECHNIQUE: [Additional images of the right breast were performed using full field digital mammography. 3-D tomosynthesis were also obtained and synthetic 2- D images were generated. CAD analysis was submitted and interpreted. High resolution right breast ultrasound was performed.] ] COMPARISON: Mammograms from 02/12/2025, 02/10/2024 and 02/04/2023 BREAST PARENCHYMAL COMPOSITION: There are scattered areas of fibroglandular density FINDINGS: MAMMOGRAPHIC FINDINGS: Redemonstration of the asymmetry in the lower central aspect of the right breast, anterior depth. No suspicious calcifications or architectural distortion. ULTRASOUND: There is a 0.5 x 0.5 x 1.2 cm benign cyst in the right breast at the 5:00 position, 5 cm from the nipple. The finding is benign. There is a 5 x 5 x 5 mm hypoechoic mass in the right breast at the 5:00 position, 5 cm from nipple. Margins are indistinct. There is posterior acoustic shadowing. No internal color Doppler flow. The finding probably corresponds with the asymmetry in the lower central aspect of the right breast, anterior depth, identified mammographically. The finding is suspicious. IMPRESSION/RECOMMENDATION: 1. There is a 5 mm mass in the right breast at the 5:00 position, 5 cm from the nipple. The finding is suspicious. An ultrasound-guided breast biopsy is recommended. BIRADS 4-Suspicious Protocol insures that the findings will be called and/or faxed to the referring clinician's office and documented in the patient's chart per critical findings protocol. Reviewed, dictated and finalized at location Q. IMPRESSION/RECOMMENDATION: 1. There is a 5 mm mass in the right breast at the 5:00 position, 5 cm from the nipple. The finding is suspicious. An ultrasound-guided breast biopsy is recom mended. BIRADS 4-Suspicious Protocol insures that the findings will be called and/or faxed to the referring clinician's office and documented in the patient's chart per critical findings protocol. IMPRESSION/RECOMMENDATION: 1. There is a 5 mm mass in the right breast at the 5:00 position, 5 cm from the nipple. The finding is suspicious. An ultrasound-guided breast biopsy is recom mended. BIRADS 4-Suspicious Protocol insures that the findings will be called and/or faxed to the referring clinician's office and documented in the patient's chart per critical findings protocol.
--- OUTSIDE RECORDS SUMMARY | 2025-03-02 09:30 | XMS_ITS | Clinical Summary ---
Author Organization [facility] Address [address], [address] [address] Phone Care Team Providers Care Carburetor Rebuilder Name Role Phone Favian Tyler Aurelio DELACRUZ Primary Care Provider [phone] Allergies No known active allergies Medications lansoprazole [...] age to complete this topic Care Teams Carburetor Rebuilder Relationship Specialty Start Date End Date Favian Tyler DO [address] [place] [address] PCP - General Internal Medicine 12/09/18
--- OUTSIDE RECORDS SUMMARY | 2025-03-02 09:30 | XMS_ITS | Clinical Summary ---
Author Organization [facility] Address [facility] [place] [address] Care Team Providers Care Liner Assembler Name Role Phone Favian Tyler MD Primary Care Provider [phone] Allergies No known active allergies Medications FLUoxetine [...] on file Legal Sex Female 5:27 PM COUPLER Gender Identity Not on file Sexual Orientation [...] on file Medical Devices Implanted Type Area Hoop Riveting Machine Operator Device Identifier Shelf Expiration Date Model / Serial / Lot [employer] [id number] Magseed 18ga 7cm Marker Breast Biopsy - [id number] Implanted:Qty: 1 on 03/07/2021 at [facility] Right: Breast [employer] [id number] / / Insurance [facility] CHOICE PLUS [facility] HMO/PPO Address: [address] [facility] H[facility]/PPO Address: [address] [address] [place] [address] [facility] CHOICE PLUS [facility] HMO/PPO Address: [address] [place] [address] [facility] HMO/PPO Address: [address] [address] [facility] HMO/PPO Address: [address] [facility] HMO/PPO Address: [address] [address] Care Teams Liner Assembler Relationship Specialty Start Date End Date Favian Tyler MD [address] [place] [address] PCP - General Internal Medicine 12/30/20
--- OUTSIDE RECORDS SUMMARY | 2025-03-02 09:30 | XMS_ITS | Encounter Summary ---
Author Organization [facility] Address [address] [place] [address] Care Team Providers Care Perinatal Nurse Name Role Phone Favian Tyler DO Primary Care Provider [phone] Encounter Details Date Type Department Care Team (Late st Contact Info) Description 05/19/2020 Lab Requisition [facility] [address] [place] [id number] Bull Zamudio MD [address] [place] [address] Social History Tobacco Use Types [...] Comments DERMATOPATHOLOGY Routine 05/18/2020 12:0 0 AM DAY TREATMENT CLINICIAN/ART THERAPIST documented in this encounter Results * DERMATOPATHOLOGY (05/18/2020 12:00 AM DAY TREATMENT CLINICIAN/ART THERAPIST) Case Report Dermatopathology Report Case: [id number] Authorizing Provider: Bull Zamudio MD Collected: 05/18/2020 12:00 AM Ordering Location: [facility] Received: 05/19/2020 11:29 AM Pathologist: Marta Nguyen MD Specimen: Skin, left upper breast 0 6:24 PM DAY TREATMENT CLINICIAN/ART THERAPIST DERMATOPATHOLOGY LABORATORY Final Diagnosis Specimen A. SKIN, left upper breast: LICHEN PLANUS-LIKE KERATOSIS (BENIGN LICHENOID KERATOSIS) (L82.1) 0 6:24 PM DAY TREATMENT CLINICIAN/ART THERAPIST DERMATOPATHOLOGY LABORATORY at 1824 DAY TREATMENT CLINICIAN/ART THERAPIST Clinical History R/O ISK, BCC, Drake's, SCC. 0 6:24 PM DAY TREATMENT CLINICIAN/ART THERAPIST DERMATOPATHOLOGY LABORATORY Gross Description Specimen A: Received is one formalin filled container labeled with the patient's name and designated left upper breast. The specimen consists of a shave biopsy measuring [id number]. Jar 0. 0 6:24 PM DAY TREATMENT CLINICIAN/ART THERAPIST DERMATOPATHOLOGY LABORATORY Microscopic Description Specimen A. SKIN, left upper breast: The epidermis is mildly acanthotic. There is a lichenoid infiltrate with vacuolar changes of basilar keratinocytes and scattered necrotic keratinocytes. 0 6:24 PM DAY TREATMENT CLINICIAN/ART THERAPIST DERMATOPATHOLOGY LABORATORY Disclaimer An external and internal positive and negative controls are appropriate for the histochemical, immunohistochemical and immunofluorescence stain(s) in this case (if any), except where stated explicitly. The performance characteristics of the stain(s) cited in this report were developed and its performance characteristic determined by the Dermatopathology Laboratory at [facility], directed by Dr. Alexandra Lieberman. These tests need not be, and therefore are not, approved by the [place] Food and Drug Administration. The tests are used for clinical purposes. Billing Codes Specimen Charges Stain Charges 02940 1 0 6:24 PM DAY TREATMENT CLINICIAN/ART THERAPIST DERMATOPATHOLOGY LABORATORY Embedded Images 0 6:24 PM DAY TREATMENT CLINICIAN/ART THERAPIST DERMATOPATHOLOGY LABORATORY Pathology/Cytolog y TISSUE SPECIMEN FROM SKIN / Unknown 05/18/2020 05/19/2020 11:29 AM DAY TREATMENT CLINICIAN/ART THERAPIST Bull Zamudio MD LAB - PATHOLOGY/CYTOLOGY ORD ERABLES Final Result DERMATOPATHOLOGY LABORATORY [facility] - Department of Dermatology Specialized Medicine [address] [place] [address], [address] [place] [address], [facility] [phone] documented in this encounter Visit Diagnoses Not on filedocumented in this encounter Care Teams Perinatal Nurse Relationship Specialty Start Date End Date Favian Tyler DO [address] [place] [address] PCP - General 01/28/19 documented as of this encounter
--- OUTSIDE RECORDS SUMMARY | 2025-03-02 09:30 | XMS_ITS | Clinical Summary ---
Author Organization [facility] Address [address] [facility] [place] [address] Care Team Providers Care Armhole Raiser Lockstitch Name Role Phone Favian Tyler DO Primary Care Provider [phone] Source Comments [facility],non-owned Affiliates and Associated Physician Practices is amultiple site organization consisting of ambulatory clinics and hospital sitesin [place], [place], [place] and [place]. This disclosure is being madepursuant to the Care Everywhere program and may not contain all information available regarding this patient. Last updated 18.[facility] Social History Tobacco Use Types Packs/Day Years [...] age to complete this topic Care Teams Armhole Raiser Lockstitch Relationship Specialty Start Date End Date Favian Tyler DO [address] [facility] [address] [place] [address] PCP - General 01/28/19
--- OUTSIDE RECORDS SUMMARY | 2025-03-02 09:30 | XMS_ITS | Encounter Summary ---
Author Organization [facility] Address [address] [facility] [place] [address] Care Team Providers Care Turf And Grounds Supervisor Name Role Phone Favian Tyler DO Primary Care Provider [phone] Encounter Details Date Type Department Care Team (Late st Contact Info) Description 09/10/2019 Lab Requisition [facility] D[facility] Lab [address] [place] [id number] Bull Zamudio MD [address] [place] [address] Social History Tobacco Use Types [...] AM CDT) Case Report Dermatopathology Report Case: [id number] Authorizing Provider: Bull Zamudio MD Collected: 09/09/2019 12:00 AM Ordering Location: [facility] Lab Received: 09/10/2019 12:50 PM [...] specimen consists of a shave biopsy measuring [id number]. Jar 0. 0 3:40 PM CDT DERMATOPATHOLOGY [...] characteristic determined by the Dermatopathology Laboratory at [facility], directed by Dr. Alexandra Lieberman. These tests need not be, and therefore are not, approved by the [place] Food and Drug Administration. The tests are used for clinical purposes. Billing Codes Specimen Charges Stain Charges 22007 1 0 3:40 PM CDT DERMATOPATHOLOGY LABORATORY Embedded Images 0 3:40 PM CDT DERMATOPATHOLOGY LABORATORY Pathology/Cytolog y TISSUE SPECIMEN FROM SKIN / Unknown 09/09/2019 09/10/2019 12:50 PM CDT us Bull Zamudio MD LAB - PATHOLOGY/CYTOLOGY ORD ERABLES Final Result DERMATOPATHOLOGY LABORATORY [facility] - Department of Dermatology [facility] [facility], 5th [place] [address], [facility] [phone] documented in this encounter Visit Diagnoses Not on filedocumented in this encounter Care Teams Turf And Grounds Supervisor Relationship Specialty Start Date End Date Favian Tyler DO [address] [facility] [address] [place] [address] PCP - General 7/31/19 documented as of this encounter
--- OUTSIDE RECORDS SUMMARY | 2025-03-02 09:31 | XMS_ITS | Clinical Summary ---
Author Organization [facility] Address [address] [place] [address] Care Team Providers Care Patch Finisher Name Role Phone Conner Matute DO Primary Care Provider [phone] Medications FLUoxetine (PROZAC) 20 MG capsule Take [...] - 2023-2 5 season) 2024 PHQ-2 (Physician [place]) 07/01/2024 11/29/2023 Colorectal Cancer Screening Colonoscopy (10 [...] patient's age to complete this topic Insurance [facility] Care Teams Patch Finisher Relationship Specialty Start Date End Date Conner Matute DO [address] [place] [address] PCP - General INTERNAL MEDICINE 11/29/23
== END 2025-03-02 09:14 | disposition home or self-care (01) ==
LOC: CHSIMG 09:14
PROVIDERS: PCP Internal Medicine; Visit Provider Internal Medicine
DX: R92.8 Other abnormal and inconclusive findings on diagnostic imaging of breast (principal)
CPT/HCPCS: 76642; 77061; 77065; G0279

== ENCOUNTER 2025-03-09 07:18 | Outpatient (CLI) | payer BC, OTHER, SELFPAY ==
--- NOTE | ~2025-03-09 | MMUS_ITS ---
PROCEDURE: US breast biopsy RT w image, MM post biopsy diagnostic RT CLINICAL HISTORY: 59-year-old female with suspicious right breast mass presents for ultrasound-guided core needle biopsy. COMPARISON: 03/02/2025 Following informed consent including risks, benefits, and possible complications, the patient was brought to the ultrasound suite. A time-out procedure was performed. A preliminary ultrasound of the right breast was performed, redemonstrating an hypoechoic mass with irregular margins at 5:00, 5 cm from the nipple. The patient was prepped and draped in the usual sterile fashion. 1% lidocaine was instilled into the subcutaneous tissues. 1% lidocaine without epinephrine was injected into the deep tissues just inferior to the lesion. Approximately 15cc lidocaine was administered. A small skin shayy was made. Multiple core samples were obtained with a 14-gauge multi pass biopsy needle. A post biopsy metal marker was placed at the biopsy site. Postprocedural mammogram of the Right breast in craniocaudal and mediolateral projections reveal the post biopsy metal marker in good position. The patient tolerated the procedure well and was without immediate postprocedural complications. IMPRESSION: Successful ultrasound guided biopsy of Right breast mass. A post biopsy coil Harrison Akash marker was placed at the biopsy site, which is seen on postprocedural mammogram. The patient tolerated the procedure well without immediate postprocedure complications. The patient was given postprocedural instructions and sent home in stable condition. Reviewed, dictated and finalized at location B. IMPRESSION: Successful ultrasound guided biopsy of Right breast mass. A post bi opsy coil Harrison Akash marker was placed at the biopsy site, which is seen on pos tprocedural mammogram. The patient tolerated the procedure well without immediate postprocedure compli cations. The patient was given postprocedural instructions and sent home in sta ble condition.
--- NOTE | 2025-03-09 08:25 | S_PTH ---
PATIENT: Bhumi Thompson LOC: [facility] U#:[id number] AGE/SX: 59/F ROOM: RE03/09/[address]: Conner Matute DO : 1965 BED: DIS: 03/09/2025 SPEC #: [id number] RECD: 03/09/25 12:07 STATUS: VICTORIANO RECarmen #: [id number] VONDA: 03/09/25 08:[address]: Conner Matute DEPT: [facility] Surgical RECD BY: Lakeisha العلي Tissues: A - Breast Biopsy Procedures: Hematoxylin and Eosin Stain Gross and Microscopic Level 4
== END 2025-03-09 07:19 | disposition home or self-care (01) ==
PROVIDERS: PCP Internal Medicine; Visit Provider Internal Medicine
DX: N63.10 Unspecified lump in the right breast, unspecified quadrant (principal)
CPT/HCPCS: 19083; 77065; 88305; A4648

== ENCOUNTER 2025-03-23 09:08 | Outpatient (CLI) | payer BC, OTHER, SELFPAY ==
--- OUTSIDE RECORDS SUMMARY | 2006-10-29 11:23 | XMS_ITS | Continuity of Care Document ---
Author Organization [facility] Address [address] [place] [address] Exec utive [facility] [address] [place] [address] Phone Care Team Providers Care Catering Sous Chef Name Role Phone Devi Galo Unavailable Unavailable Procedures Procedure Date Remove Eyelid Lesion Advance Directives Directive Yes / No Effective Date File Name No Information Encounters Encounter Description Practice Location Reason(s) For Visit Diagnoses Date Provider Providers Copied on Encounter [facility], [address] [place] [address] [address], [place], [place], [id number], [place] tel:[phone] [facility] No Information [address] [facility] [address] , [address], [place], [address], [place]. tel:[phone] Referring Provider: Carlos Mccann OD, [address] [place], [address]. tel:[phone] Family History Family Member Type Diagnosis Age At Onset No Information Payers Payer name Insurance type Covered republican ID Authoriza tion(s) BCBS [place] Out [place] [id number] Social History Type Description Quantity Date Captured [...]
--- NOTE | 2025-03-23 09:16 | EST_ITS ---
Patient Info Name: Bhumi Thompson Age: 59 years : 1965 Gender: Female Ht: 62 in Wt: 150 lbs BSA: 1.74 m2 HR: 61 bpm BP: 130 / 84 mmHg Technical Quality: Good Exam Date: 03/23/2025 10:01 AM Patient Status: O Admit Date: 03/23/2025 Exam Type: CA stress echo Treadmill exercise stress echocardiogram is performed. Staff Referring Physician: Conner Matute Rattling Machine Tender: Nasim Macias III Attending Provider: Conner Matute DO Exercise Technologist: Kristy Mahajan Exercise Physician: Jony Burns DO Summary 1. 1. Negative Elliott exercise stress test for ischemic ST changes by ECG criteria. 2. 2. Good functional capacity, achieving 10 METs of workload. 3. 3. Appropriate HR response to exercise. 4. 4. Appropriate HR recovery at 1 minute post exercise. 5. 5. Negative stress echocardiogram for ischemia by wall motion analyiss. 6. 6. Patient informed of the above results. Stress Echo Findings Left Ventricle Appropriate increase in LV endocardial thickening with systole. Appropriate augmentation of contractility with systole. No wall motion abnormality. Left Ventricle Normal LV systolic function, no wall motion abnormality. Protocol: Elliott Stress ECG Details Stage: REST Duration (min): 0 min : 57 sec Speed (mph): 0.0 Grade (%): 0 HR (bpm): 62 SBP (mmHg): 130 DBP (mmHg): 84 METS: --- Stage: REST Duration (min): 31 min : 10 sec Speed (mph): 0.0 Grade (%): 0 HR (bpm): 69 SBP (mmHg): 130 DBP (mmHg): 84 METS: --- Stage: STAGE 1 Duration (min): 1 min : 0 sec Speed (mph): 1.7 Grade (%): 10 HR (bpm): 93 SBP (mmHg): 130 DBP (mmHg): 84 METS: --- Stage: STAGE 1 Duration (min): 2 min : 0 sec Speed (mph): 1.7 Grade (%): 10 HR (bpm): 107 SBP (mmHg): 130 DBP (mmHg): 84 METS: --- Stage: STAGE 1 Duration (min): 3 min : 0 sec Speed (mph): 1.7 Grade (%): 10 HR (bpm): 109 SBP (mmHg): 163 DBP (mmHg): 85 METS: --- Stage: STAGE 2 Duration (min): 1 min : 0 sec Speed (mph): 2.5 Grade (%): 12 HR (bpm): 118 SBP (mmHg): 163 DBP (mmHg): 85 METS: --- Stage: STAGE 2 Duration (min): 2 min : 0 sec Speed (mph): 2.5 Grade (%): 12 HR (bpm): 124 SBP (mmHg): 163 DBP (mmHg): 85 METS: --- Stage: STAGE 2 Duration (min): 3 min : 0 sec Speed (mph): 2.5 Grade (%): 12 HR (bpm): 129 SBP (mmHg): 179 DBP (mmHg): 93 METS: --- Stage: STAGE 3 Duration (min): 1 min : 0 sec Speed (mph): 3.4 Grade (%): 14 HR (bpm): 136 SBP (mmHg): 179 DBP (mmHg): 93 METS: --- Stage: STAGE 3 Duration (min): 2 min : 0 sec Speed (mph): 3.4 Grade (%): 14 HR (bpm): 140 SBP (mmHg): 179 DBP (mmHg): 93 METS: --- Stage: STAGE 3 Duration (min): 2 min : 4 sec Speed (mph): 0.0 Grade (%): 0 HR (bpm): 141 SBP (mmHg): 179 DBP (mmHg): 93 METS: --- Stage: RECOVERY Duration (min): 0 min : 55 sec Speed (mph): 0.0 Grade (%): 0 HR (bpm): 111 SBP (mmHg): 139 DBP (mmHg): 73 METS: --- Stage: RECOVERY Duration (min): 1 min : 55 sec Speed (mph): 0.0 Grade (%): 0 HR (bpm): 88 SBP (mmHg): 139 DBP (mmHg): 73 METS: --- Stage: RECOVERY Duration (min): 2 min : 55 sec Speed (mph): 0.0 Grade (%): 0 HR (bpm): 85 SBP (mmHg): 138 DBP (mmHg): 67 METS: --- Stage: RECOVERY Duration (min): 3 min : 55 sec Speed (mph): 0.0 Grade (%): 0 HR (bpm): 77 SBP (mmHg): 138 DBP (mmHg): 67 METS: --- Stage: RECOVERY Duration (min): 4 min : 55 sec Speed (mph): 0.0 Grade (%): 0 HR (bpm): 75 SBP (mmHg): 127 DBP (mmHg): 65 METS: --- Stage: RECOVERY Duration (min): 5 min : 22 sec Speed (mph): 0.0 Grade (%): 0 HR (bpm): 83 SBP (mmHg): 127 DBP (mmHg): 65 METS: --- Rest HR: 69 bpm Peak HR: 141 bpm Rest Sys BP: 130 mmHg Peak Sys BP: 179 mmHg Max Pred HR: 159 bpm % Max Pred HR: 89 % Target HR: 135 bpm Max RPP: 25,239 bpm*mmHg Bangura Score: 4 Termination Reason: Reached target heart rate or workload Cardiac Symptoms: Shortness of breath Max ST Seg Deviation: 1 mm Total Time: 8 min : 4 sec Rest Joseph BP: 84 mmHg Peak Joseph BP: 93 mmHg Angina Score: None Total METS: 10.3 Resting ECG Sinus rhythm. Stress ECG No ST changes. Arrhythmias None. Report Signatures Stress ECG Echo
--- OUTSIDE RECORDS SUMMARY | 2025-03-23 09:41 | XMS_ITS | Clinical Summary ---
Author Organization [facility] Address [address] [place] [address] Care Team Providers Care Aircraft Power Plant Assembler Name Role Phone Favian Tyler DO Primary Care Provider [phone] Source Comments [facility] [employer],non-owned Affiliates and Associated Physician Practices is amultiple site organization consisting of ambulatory clinics and hospital sitesin [place], [place], [place] and [place]. This disclosure is being madepursuant to the Care Everywhere program and may not contain all information available regarding this patient. 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
--- OUTSIDE RECORDS SUMMARY | 2025-03-23 09:41 | XMS_ITS | Clinical Summary ---
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 Gender Identity Not on file Sexual Orientation [...] on file Medical Devices Implanted Type Area Balance Weigher Device Identifier Shelf Expiration Date Model / Serial / Lot [employer] [id number] Magseed 18ga 7cm Marker Breast Biopsy - [id number] Implanted:Qty: 1 on 03/07/2021 at [facility] Right: Breast [employer] [id number] / / Insurance [facility] CHOICE PL[facility] [address] [facility]ALTHCARE Member Subscriber Plan / Payer (Ef fective 2021-Present) Name:Bhumi Thompson Relation to Subscriber:Self Name:Jay Bhumi L Payer ID:[id number] ([facility]) Type:[facility] HMO/PPO Address: [address] HEALTHCARE Care Teams Tip Mender Relationship Specialty Start Date End Date Fvaian Tyler MD [address] [place] [id number] PCP - General Internal Medicine 12/30/20
--- OUTSIDE RECORDS SUMMARY | 2025-03-23 09:41 | XMS_ITS | Encounter Summary ---
Author Organization [facility] Address [address] [facility] [place] [address] Care Team Providers Care Circulator Name Role Phone Favian Tyler DO Primary Care Provider [phone] Encounter Details Date Type Department Care Team (Late st Contact Info) Description 05/19/2020 Lab Requisition [facility] [address] [place] [id number] Bull Zamudio MD [address] [place] [address] Social History Tobacco Use Types [...] Comments DERMATOPATHOLOGY Routine 05/18/2020 12:0 0 AM CANAL TENDER documented in this encounter Results * DERMATOPATHOLOGY (05/18/2020 12:00 AM CANAL TENDER) Case Report Dermatopathology Report Case: [id number] Authorizing Provider: Bull Zamudio MD Collected: 05/18/2020 12:00 AM Ordering Location: [facility] Received: 05/19/2020 11:29 AM Pathologist: Marta Nguyen MD Specimen: Skin, left upper breast 0 6:24 PM CANAL TENDER DERMATOPATHOLOGY LABORATORY Final Diagnosis Specimen A. SKIN, left upper breast: LICHEN PLANUS-LIKE KERATOSIS (BENIGN LICHENOID KERATOSIS) (L82.1) 0 6:24 PM CANAL TENDER DERMATOPATHOLOGY LABORATORY at 1824 CANAL TENDER Clinical History R/O ISK, BCC, Drake's, SCC. 0 6:24 PM CANAL TENDER DERMATOPATHOLOGY LABORATORY Gross Description Specimen A: Received is one formalin filled container labeled with the patient's name and designated left upper breast. The specimen consists of a shave biopsy measuring 1x1h4hq. Jar 0. 0 6:24 PM CANAL TENDER DERMATOPATHOLOGY LABORATORY Microscopic Description Specimen A. SKIN, left upper breast: The epidermis is mildly acanthotic. There is a lichenoid infiltrate with vacuolar changes of basilar keratinocytes and scattered necrotic keratinocytes. 0 6:24 PM CANAL TENDER DERMATOPATHOLOGY LABORATORY Disclaimer An external and internal positive and negative controls are appropriate for the histochemical, immunohistochemical and immunofluorescence stain(s) in this case (if any), except where stated explicitly. The performance characteristics of the stain(s) cited in this report were developed and its performance characteristic determined by the Dermatopathology Laboratory at [facility], directed by Dr. Alexandra Lieberman. These tests need not be, and therefore are not, approved by the [place] Food and Drug Administration. The tests are used for clinical purposes. Billing Codes Specimen Charges Stain Charges 22027 1 0 6:24 PM CANAL TENDER DERMATOPATHOLOGY LABORATORY Embedded Images 0 6:24 PM CANAL TENDER DERMATOPATHOLOGY LABORATORY Pathology/Cytolog y TISSUE SPECIMEN FROM SKIN / Unknown 05/18/2020 05/19/2020 11:29 AM CANAL TENDER Bull Zamudio MD LAB - PATHOLOGY/CYTOLOGY ORD ERABLES Final Result DERMATOPATHOLOGY LABORATORY [facility] - Department of Dermatology [facility] [address] [place] [address], [address] [place] [address], [facility] [phone] documented in this encounter Visit Diagnoses Not on filedocumented in this encounter Care Teams Circulator Relationship Specialty Start Date End Date Favian Tyler DO [address] [place] [address] PCP - General 01/28/19 documented as of this encounter
--- OUTSIDE RECORDS SUMMARY | 2025-03-23 09:41 | XMS_ITS | Encounter Summary ---
Author Organization [facility] Address [address] [place] [address] Care Team Providers Care Geotechnicial Properties Technician Name Role Phone Favian Tyler DO Primary Care Provider [phone] Encounter Details Date Type Department Care Team (Late st Contact Info) Description 09/10/2019 Lab Requisition [facility] [address] [place] [phone] Bull Zamudio MD [address] [place] [address] Social History Tobacco Use Types [...] AM CDT) Case Report Dermatopathology Report Case: [id number] Authorizing Provider: Bull Zamudio MD Collected: 09/09/2019 12:00 AM Ordering Location: [facility] Received: 09/10/2019 12:50 PM Pathologist: [...] specimen consists of a shave biopsy measuring [id number]. Jar 0. 0 3:40 PM CDT DERMATOPATHOLOGY [...] characteristic determined by the Dermatopathology Laboratory at [facility], directed by Dr. Alexandra Lieberman. These tests need not be, and therefore are not, approved by the [place] Food and Drug Administration. The tests are used for clinical purposes. Billing Codes Specimen Charges Stain Charges 72271 1 0 3:40 PM CDT DERMATOPATHOLOGY LABORATORY Embedded Images 0 3:40 PM CDT DERMATOPATHOLOGY LABORATORY Pathology/Cytolog y TISSUE SPECIMEN FROM SKIN / Unknown 09/09/2019 09/10/2019 12:50 PM CDT us Bull Zamudio MD LAB - PATHOLOGY/CYTOLOGY ORD ERABLES Final Result DERMATOPATHOLOGY LABORATORY [facility] - Department of Dermatology [facility] [facility], [address] [place] [address], [facility] [phone] documented in this encounter Visit Diagnoses Not on filedocumented in this encounter Care Teams Geotechnicial Properties Technician Relationship Specialty Start Date End Date Favian Tyler DO [address] [place] [address] PCP - General 7/31/19 documented as of this encounter
--- OUTSIDE RECORDS SUMMARY | 2025-03-23 09:41 | XMS_ITS | Clinical Summary ---
Author Organization [facility] Address [address], [address] [address] Phone Care Team Providers Care Advisor Consultant Name Role Phone Favian Tyler Aurelio DELACRUZ Primary Care Provider [phone] Allergies No known active allergies Medications lansoprazole [...] age to complete this topic Care Teams Advisor Consultant Relationship Specialty Start Date End Date Favian Tyler DO [address] [place] [address] PCP - General Internal Medicine 12/09/18
== END 2025-03-23 09:09 | disposition home or self-care (01) ==
PROVIDERS: PCP Internal Medicine; Visit Provider Internal Medicine
DX: R94.31 Abnormal electrocardiogram [ECG] [EKG] (principal)
CPT/HCPCS: 93351